=== PATIENT | female | born 1975 | race Caucasian/White ===

== ENCOUNTER 2018-05-22 18:12 | Inpatient (IN) | payer MEDICAID, SELFPAY ==
[2018-05-22 18:39] VITALS: BP 183/99; PULSE 144; RESP 20; TEMP 37.3; O2SAT 100
[2018-05-22] MEDS: LORazepam 2 MG/ML SYRINGE IV ×2 (18:50→23:45)
[2018-05-22] MEDS: SODIUM CHLORIDE 0.9% 1,000 ML 1000 ML IV (18:53)
[2018-05-22] MEDS: THIAMINE 100 MG in DEXTROSE 5 % IN WATER 50 ML 204 ML IV (18:59)
[2018-05-22 19:35] LABS: Urine Amphetamines Negative (Negative); Urine Cocaine Negative (Negative); Urine Methamphetamines Negative (Negative); Urine Morphine/Opi cutoff 2000 Negative (Negative); Urine Phencyclidine Negative (Negative); Urine Tetrahydrocannabinol Positive (Negative)
[2018-05-22 19:36] LABS: Urine Barbiturates Negative (Negative); Urine Benzodiazepines Positive (Negative); Urine MDMA Negative (Negative); Urine Methadone Negative (Negative); Urine Oxycodone Negative (Negative); Urine Tricyclic Antidepressant Negative (Negative)
[2018-05-22] MEDS: LORazepam 2 MG/ML SYRINGE 4 MG IV (19:54)
--- NOTE | 2018-05-22 20:52 | ED_ITS ---
HPI - Alcohol General Chief Complaint: Toxicology Problem Stated Complaint: ETOH withdraw Time Seen by Provider: 05/22/18 18:15 Source: patient, family and EMS Mode of arrival: EMS Limitations: no limitations History of Present Illness HPI narrative: 42-year-old female with history of smoking and alcohol use presents by air medical transport for evaluation of possible alcohol withdrawal. She drinks multiple alcoholic beverages daily and had her last drink he yesterday. She started developing headache with nausea and vomiting, resting tremor, tactile disturbance as well as visual hallucinations. She has had alcohol withdrawal before but never the [facility]. She has never had seizures and has never required hospitalization. She was evaluated by medics and given Ativan and magnesium prior to her arrival. This seemed to help her symptoms on the short term but she eventually became agitated again. MD complaint: alcohol withdrawal and alcohol dependence Last drink: days (ago) Chronic alcohol use: Yes Previous visits for alcohol intoxication: No Recent trauma: No Associated symptoms: nausea, vomiting, tremors and abdominal pain Treatments prior to arrival: benzodiazepines Related Data Home Medications Medication Instructions Recorded Confirmed Benadryl Allergy 05/22/18 buspirone 30 mg PO BID 05/22/18 05/22/18 gabapentin 05/22/18 venlafaxine 225 mg PO DAILY 05/22/18 05/22/18 Allergies Allergy/AdvReac Type Severity Reaction Status Date / Time Penicillins Allergy Verified 05/22/18 17:54 Review of Systems Review of Systems All systems reviewed & are unremarkable except as noted in HPI and below Constitutional Denies chills, Denies fever(s), Denies lethargy and Denies weakness Eyes Denies change in vision, Denies eye discharge, Denies irritation and Denies loss of vision ENT Ears, Nose, Mouth, and Throat: Denies change in voice, Denies neck pain and Denies sore throat Cardiovascular Denies chest pain, Denies irregular heart rhythm, Denies lightheadedness, Reports palpitations, Denies dyspnea, Denies dyspnea on exertion and Denies orthopnea Respiratory Denies cough, Denies dyspnea, Denies dyspnea on exertion and Denies wheezing Gastrointestinal Gastrointestinal: Reports abdominal pain, Denies change in bowel habits, Denies diarrhea, Reports nausea and Reports vomiting Genitourinary Denies hematuria, Denies flank pain, Denies urinary incontinence and Denies urinary urgency Musculoskeletal Reports abnormal gait and Denies neck pain Comments: Resting tremor Integumentary/Breasts Denies pruritus, Denies erythema, Denies rash and Denies wounds Comments: Diaphoresis Neurologic Reports abnormal movements, Reports abnormal gait, Reports behavioral changes, Reports confusion, Denies loss of vision and Denies weakness Psychiatric Reports anxiety, Reports behavioral changes, Reports confusion, Denies depression, Denies homicidal ideation and Denies suicidal ideation Endocrine Reports palpitations Hematologic/Lymphatic Denies easy bruising Allergic/Immunologic Denies wheezing [facility] Medical History Ankle fracture, left (Acute) Hip fracture requiring operative repair (Acute) Seasonal allergies (Acute) Social History household members: significant other Smoking Status: Current every day smoker Exam Narrative Exam Narrative: GENERAL: 42-year-old female in obvious significant distress, HEAD: Atraumatic. Normocephalic. No temporal or scalp tenderness. EYES: Pupils equal round and reactive. Extraocular motions intact. No scleral icterus. No injection or drainage. ENT: Nose without bleeding, purulent drainage or septal hematoma. Throat without erythema, tonsillar hypertrophy or exudate. Uvula midline. Airway patent. NECK: Trachea midline. No JVD or lymphadenopathy. Supple, nontender, no meningeal signs. CARDIOVASCULAR: Tachycardic with regular rhythm without murmurs, gallops, or rubs. RESPIRATORY: Clear to auscultation. Breath sounds equal bilaterally. No wheezes , rales, or rhonchi. GASTROINTESTINAL: Abdomen soft, non-tender, nondistended. No hepato-splenomegaly , or palpable masses. No guarding. EXTREMITIES: No clubbing, cyanosis, or edema. No joint tenderness, effusion, or edema noted. BACK: Nontender without deformity or crepitance. No flank tenderness. NEURO: AOx3. SKIN: Diaphoretic No rash or erythema. PSYCH: Agitated Initial Vital Signs Initial Vital Signs: Vital Signs Temperature 99.2 F 05/22/18 18:39 Pulse Rate 144 H 05/22/18 18:39 Respiratory Rate 20 05/22/18 18:39 Blood Pressure 183/99 H 05/22/18 18:39 Pulse Oximetry 100 05/22/18 18:39 Course Course Narrative: initial [facility] for Alcohol Withdrawal from [employer] on 05/22/2018 All calculations should be rechecked by clinician prior to use RESULT SUMMARY: 25 points Patients with scores ?20 frequently require medication for withdrawal, and may also require admission to the ICU for observation for seizures or development of delirium tremens, and more frequent medication dosing. INPUTS: Nausea/vomiting ?> 6 = (More severe symptoms) Tremor ?> 5 = (More severe symptoms) Paroxysmal sweats ?> 2 = (More severe symptoms) Anxiety ?> 2 = (More severe symptoms) Agitation ?> 3 = (More severe symptoms) Tactile disturbances ?> 2 = Mild itching, pin and needles, burning, or numbness Auditory disturbances ?> 2 = Mild harshness or ability or frighten Visual disturbances ?> 0 = Not present Headache/fullness in head ?> 3 = Moderate Orientation/clouding of sensorium ?> 0 = Oriented, can do serial additions Orders Ordered: ED Orders 05/22/18 18:28 EKG-12 Lead Stat 05/22/18 19:28 Urine Drug Screen, Rapid Stat 05/22/18 21:00 Complete Blood Count AUTO DIFF Stat Comprehensive Metabolic Panel Stat Ethanol (ETOH) Stat Hepatic (Liver) Panel Stat Lipase Stat Magnesium Stat 05/22/18 22:19 Urine Culture Stat Urine Microscopic Stat 05/22/18 22:20 Test Urine Stat 05/23/18 EKG-12 Lead Routine 05/23/18 01:34 MRSA PCR Routine 05/23/18 06:00 BMP [Basic Metabolic Panel] DAILY MAG [Magnesium] DAILY 05/24/18 06:00 BMP [Basic Metabolic Panel] DAILY MAG [Magnesium] DAILY 05/25/18 06:00 BMP [Basic Metabolic Panel] DAILY MAG [Magnesium] DAILY Clonidine HCl (Catapres) 0.1 mg PO Q8H PRN PRN Reason: for SBP > 160 mmHg and/or DBP > 100 mmHg Last Admin: 05/23/18 01:29 Dose: 0.1 mg Sodium Chloride (Normal Saline 0.9%) 1,000 mls @ 100 mls/hr IV CONT JOVANNI Last Admin: 05/23/18 00:08 Dose: 100 mls/hr Lorazepam (Ativan) 2 mg IV CIWAPRN PRN PRN Reason: Alcohol Withdrawal Last Admin: 05/23/18 01:34 Dose: 2 mg Nicotine (Nicoderm) 14 mg TOP DAILY JOVANNI Olanzapine (Zyprexa Zydis) 5 mg PO Q4H PRN PRN Reason: agitation and hallucinations Ondansetron HCl (Zofran Odt) 4 mg PO Q6H PRN PRN Reason: Nausea Last Admin: 05/23/18 01:27 Dose: 4 mg Discontinued Medications Sodium Chloride (Normal Saline 0.9%) 1,000 mls @ 1,000 mls/hr IV BOLUS ONE Stop: 05/22/18 19:37 Last Infusion: 05/22/18 22:03 Dose: 0 mls/hr Admin: 05/22/18 18:53 Dose: 1,000 mls/hr Thiamine HCl 100 mg/ Dextrose 51 mls @ 204 mls/hr IV NOW ONE Stop: 05/22/18 18:39 Last Infusion: 05/22/18 19:50 Dose: 0 mls/hr Admin: 05/22/18 18:59 Dose: 204 mls/hr Lorazepam (Ativan) 2 mg IV NOW ONE Stop: 05/22/18 18:39 Last Admin: 05/22/18 18:50 Dose: 2 mg Lorazepam (Ativan) 4 mg IV NOW ONE Stop: 05/22/18 19:45 Last Admin: 05/22/18 19:54 Dose: 4 mg Lorazepam (Ativan) 2 mg IV NOW ONE Stop: 05/22/18 23:43 Last Admin: 05/22/18 23:45 Dose: 2 mg Olanzapine (Zyprexa Zydis) 5 mg PO NOW ONE Stop: 05/22/18 23:27 Last Admin: 05/23/18 00:15 Dose: 5 mg Vital Signs - 8 hr 05/22/18 18:39 05/22/18 22:00 05/22/18 22:03 Temperature 99.2 F 98.7 F Pulse Rate 144 H 159 H 140 H Respiratory Rate 20 20 Blood Pressure 183/99 H 159/134 H 148/102 H Pulse Oximetry 100 98 05/22/18 22:30 05/22/18 23:43 05/23/18 01:29 Temperature 97.4 F L Pulse Rate 144 H 135 H 137 H Respiratory Rate 22 Blood Pressure 164/133 H 164/115 H 171/128 H Pulse Oximetry 98 MDM - Alcohol Lab Data Result diagrams: 05/22/18 21:00 05/22/18 21:00 Labs: Lab Results 05/22/18 05/22/18 05/22/18 Range/Units 19:28 21:00 21:00 WBC 6.9 (4.5-11.0) X10^3/uL RBC 3.56 L (4.0-5.2) X10^6/uL Hgb 12.1 (12.0-16.0) g/dL Hct 35.3 L (36-46) % MCV 99.2 (80-100) fL MCH 33.9 (26-34) PG MCHC 34.2 (30-36) % RDW 15.5 H (11.6-14.8) % Plt Count 197 (150-400) X10^3/uL Neut % (Auto) 76.4 H (50-75) % Lymph % (Auto) 18.4 L (25-40) % Hickman % (Auto) 4.8 (3-14) % Eos % (Auto) 0.0 L (2-4) % Baso % (Auto) 0.4 (0-2) % Neut # (Auto) 5300 (8658-2248) /uL Sodium 138 (137-145) mmol/L Potassium 3.5 (3.4-5.1) mmol/L Chloride 102 (98-107) mmol/L Carbon Dioxide 25 (22-32) mmol/L BUN 5 L (7-17) mg/dL Creatinine 0.50 L (0.52-1.04) mg/dL Estimated GFR > 60.0 (>60) mL/min BUN/Creatinine Ratio 10.0 (6-22) Glucose 110 H (70-100) mg/dL Calcium 8.2 L (8.4-10.2) mg/dL Magnesium 1.7 (1.6-2.3) mg/dL Total Bilirubin 0.6 (0.2-1.3) mg/dL Conjugated Bilirubin 0.0 (0.0-0.3) md/dL Unconjugated Bilirubin 0.2 (0.0-1.1) mg/dL AST 42 H (14-36) IU/L ALT 22 (9-52) IU/L Alkaline Phosphatase 64 (38-126) U/L Total Protein 6.9 (6.3-8.2) g/dL Albumin 4.2 (3.5-5.0) g/dL Globulin 2.7 (1.7-4.1) g/dL Albumin/Globulin Ratio 1.6 (1.0-2.8) Lipase 109 (23-300) U/L Urine RBC (0-5/HPF) Urine WBC (0-5/HPF) Ur Squamous Epith Cells Urine Bacteria (None) Ur Culture Indicated? Micro UA Comment Urine Test (Negative) Urine Opiates Screen Negative (Negative) Ur Oxycodone Screen Negative (Negative) Urine Methadone Screen Negative (Negative) Ur Barbiturates Screen Negative (Negative) U Tricyclic Antidepress Negative (Negative) Ur Phencyclidine Scrn Negative (Negative) Ur Amphetamines Screen Negative (Negative) U Methamphetamines Scrn Negative (Negative) Ur MDMA Scrn (Ecstasy) Negative (Negative) U Benzodiazepines Scrn Positive H (Negative) Urine Cocaine Screen Negative (Negative) U Marijuana (THC) Screen Positive H (Negative) Ethyl Alcohol < 10 mg/dL 05/22/18 05/22/18 Range/Units 22:19 22:20 WBC (4.5-11.0) X10^3/uL RBC (4.0-5.2) X10^6/uL Hgb (12.0-16.0) g/dL Hct (36-46) % MCV (80-100) fL MCH (26-34) PG MCHC (30-36) % RDW (11.6-14.8) % Plt Count (150-400) X10^3/uL Neut % (Auto) (50-75) % Lymph % (Auto) (25-40) % Hickman % (Auto) (3-14) % Eos % (Auto) (2-4) % Baso % (Auto) (0-2) % Neut # (Auto) (2811-9121) /uL Sodium (137-145) mmol/L Potassium (3.4-5.1) mmol/L Chloride (98-107) mmol/L Carbon Dioxide (22-32) mmol/L BUN (7-17) mg/dL Creatinine (0.52-1.04) mg/dL Estimated GFR (>60) mL/min BUN/Creatinine Ratio (6-22) Glucose (70-100) mg/dL Calcium (8.4-10.2) mg/dL Magnesium (1.6-2.3) mg/dL Total Bilirubin (0.2-1.3) mg/dL Conjugated Bilirubin (0.0-0.3) md/dL Unconjugated Bilirubin (0.0-1.1) mg/dL AST (14-36) IU/L ALT (9-52) IU/L Alkaline Phosphatase (38-126) U/L Total Protein (6.3-8.2) g/dL Albumin (3.5-5.0) g/dL Globulin (1.7-4.1) g/dL Albumin/Globulin Ratio (1.0-2.8) Lipase (23-300) U/L Urine RBC 0-1/hpf (0-5/HPF) Urine WBC 5-10/hpf H (0-5/HPF) Ur Squamous Epith Cells 0-1 /hpf Urine Bacteria Many (>30) H (None) Ur Culture Indicated? Specimen cultured Micro UA Comment Not Reportable Urine Test Negative (Negative) Urine Opiates Screen (Negative) Ur Oxycodone Screen (Negative) Urine Methadone Screen (Negative) Ur Barbiturates Screen (Negative) U Tricyclic Antidepress (Negative) Ur Phencyclidine Scrn (Negative) Ur Amphetamines Screen (Negative) U Methamphetamines Scrn (Negative) Ur MDMA Scrn (Ecstasy) (Negative) U Benzodiazepines Scrn (Negative) Urine Cocaine Screen (Negative) U Marijuana (THC) Screen (Negative) Ethyl Alcohol mg/dL Point of Care Testing Breathalizer 0 Glucose POC 112 Urine Dip Bedside Urine Glucose Negative Bedside Urine Bilirubin - Negative Bedside Urine Ketone ++ 40 Urine Specific [place] 1.030 Bedside Urine Occult Blood +++ Bedside Urine pH 6.0 Bedside Urine Protein ++ 100 Bedside Urine Urobilinogen 0.2 Bedside Urine Nitrite + Positive Bedside Urine Leukocytes - Negative Esterase Discharge Plan Departure Patient Disposition: Admitted As Inpatient Clinical Impression: Alcohol withdrawal syndrome Discharge Date/Time: 05/22/18 22:04 Interventions: ED Discharge Assessment Last Done: 05/22/18 22:03 Admit Date/Time: 05/22/18 21:34 Admit Provider: Alissa Toure
[2018-05-22 21:20] LABS: Add Manual Diff / Slide Review NO; Basophils Percent Auto 0.4 % (0-2); Hematocrit 35.3 % (36-46); Hemoglobin 12.1 g/dL (12.0-16.0); Lymphocytes Percent Auto 18.4 % (25-40); Mean Corpuscular HGB Conc 34.2 % (30-36); Mean Corpuscular Hemoglobin 33.9 PG (26-34); Mean Corpuscular Volume 99.2 fL (80-100); Monocytes Percent Auto 4.8 % (3-14); Neutrophils Absolute Auto 5300 /uL (3000-5900); Neutrophils Percent Auto 76.4 % (50-75); Platelet Count 197 X10^3/uL (150-400); Red Blood Cell Count 3.56 X10^6/uL (4.0-5.2); Red Cell Distribution Width 15.5 % (11.6-14.8); White Blood Cell Count 6.9 X10^3/uL (4.5-11.0)
[2018-05-22 21:24] LABS: Alanine Aminotransferase 22 IU/L (9-52); Albumin 4.2 g/dL (3.5-5.0); Albumin Globulin Ratio 1.6 (1.0-2.8); Alkaline Phosphatase 64 U/L (38-126); Aspartate Aminotransferase 42 IU/L (14-36); Bilirubin Total 0.6 mg/dL (0.2-1.3); Bilirubin Unconjugated 0.2 mg/dL (0.0-1.1); Blood Urea Nitrogen 5 mg/dL (7-17); Calcium 8.2 mg/dL (8.4-10.2); Carbon Dioxide 25 mmol/L (22-32); Chloride 102 mmol/L (98-107); Estimated Glomerular Filt Rate > 60.0 mL/min (>60); Ethanol (ETOH) < 10 mg/dL; Globulin 2.7 g/dL (1.7-4.1); Glucose 110 mg/dL (70-100); HEMOLYSIS < 15 (0-50); Lipase 109 U/L (23-300); Magnesium 1.7 mg/dL (1.6-2.3); Potassium 3.5 mmol/L (3.4-5.1); Sodium 138 mmol/L (137-145); Total Protein 6.9 g/dL (6.3-8.2)
[2018-05-22 22:00] VITALS: BP 159/134; PULSE 159; RESP 20; TEMP 37.1
[2018-05-22 22:03] VITALS: BP 148/102; PULSE 140; O2SAT 98
[2018-05-22 22:11] VITALS: BMI 29.5
[2018-05-22 22:30] VITALS: BP 164/133; PULSE 144
[2018-05-22 22:34] LABS: Bacteria Urine Many (>30); RBC Urine 0-1/HPF (0-5/HPF); Squamous Epithelial Cell Urine 0-1 /HPF; WBC Urine 5-10/HPF (0-5/HPF)
[2018-05-22 22:35] LABS: Culture Indicated Urine Specimen Cultured
--- NOTE | 2018-05-22 23:02 | PC.NURSE ---
2200- Pt to the room from ER. Able to stand pivot transfer to bed. Tremulous, impulsive. Oriented to room and routine. Reinforced safety, bed alarm on. S.O. at bedside.
[2018-05-22 23:43] VITALS: BP 164/115; PULSE 135; RESP 22; TEMP 36.3; O2SAT 98
[2018-05-22 23:48] LABS: Pregnancy Test Urine Negative (Negative)
[2018-05-23] VITALS (12 sets, daily range): BP systolic 143–176; BP diastolic 88–128; PULSE 112–137; RESP 10–19; TEMP 36.3–36.7; O2SAT 97–98
[2018-05-23] MEDS: SODIUM CHLORIDE 0.9% 1,000 ML 100 ML IV (00:08)
[2018-05-23] MEDS: OLANZapine ODT 10 MG TAB 5 MG PO (00:15)
[2018-05-23] MEDS: ONDANSETRON 4 MG ODT PO ×2 (01:27→09:22)
[2018-05-23] MEDS: cloNIDine 0.1 MG TABLET PO ×3 (01:29→20:53)
[2018-05-23] MEDS: LORazepam 2 MG/ML SYRINGE IV ×7 (01:34→20:53)
--- NOTE | 2018-05-23 02:54 | P.HP_ITS ---
History of Present Illness Date Patient Seen: 05/22/18 Time Patient Seen: 23:47 Chief complaint: ETOH withdraw Narrative: The patient is a 42-year-old female with PMH significant for anxiety , depression, ETOH abuse, tobacco dependence, and marijuana use. Transported via [facility] from [place] for ETOH withdrawal symptoms. Patient woke in a.m. of 05/22/2018 with nausea, vomiting/dry heaves (reports 10+ episodes, bilious, non-bloody), and diarrhea. Associated symptoms include tremulousness, diaphoresis, insomnia, headache, dizziness, and tactile disturbances. Denies chest pain, palpitations, dyspnea, or abdominal pain. Patient has an underlying history of heavy alcohol dependence / abuse. Patient reports her alcohol use as on and off for a number of years, she is reluctant to provide definitive time frame. Drinks 1 pint of hard liquor daily. Last drink 24-48 hours prior to hospital presentation. On presentation to the ED was noted to have a score of 25. ETOH level less than 10. Patient admits to prior history of ETOH withdrawal with similar symptoms. She does admit to history of aggression during ETOH withdrawal. However, denies withdrawal associated delirium and seizures. Patient denies recreational drug use, however her urine drug screen was positive for marijuana and benzodiazepines. Patient History Medical History Alcohol abuse (Chronic) Ankle fracture, left (Chronic) Anxiety and depression (Chronic) Hip fracture requiring operative repair (Chronic) Marijuana use (Chronic) Seasonal allergies (Chronic) Tobacco dependence (Chronic) Surgical History History of section (Acute) Family & Social History Social History: household members Significant other Prior Living Arrangements House Patient has 1 daughter. Safety & Behavioral: Feels Safe in Current Yes Environment Been Physically Hurt or No Threatened By a Person Suicidal Ideation Description None Suicide Plan Description No Plan Tobacco & Substance use: Tobacco type cigarettes,cannabis/marijuana Smoking Status Current every day smoker alcohol intake frequency 3 or more drinks per day Substance Use Type marijuana Meds Home Medications Medication Instructions Recorded Confirmed Type buspirone 30 mg PO BID 05/22/18 05/22/18 History gabapentin 05/22/18 History venlafaxine 225 mg PO DAILY 05/22/18 05/22/18 History Allergies Allergy/AdvReac Type Severity Reaction Status Date / Time diphenhydramine Allergy Unverified 05/23/18 03:14 [From Benadryl Allergy] Penicillins Allergy Verified 05/22/18 17:54 Review of Systems Review of Systems All systems reviewed & are unremarkable except as noted in HPI and below and other (History of anxiety and depression. Denies harmful ideation or self and others.) Exam Vital Signs (past 8 hours): - 05/22/18 22:00 05/22/18 22:03 05/22/18 22:30 Temperature 98.7 F Pulse Rate 159 H 140 H 144 H Respiratory Rate 20 Blood Pressure 159/134 H 148/102 H 164/133 H Pulse Oximetry 98 05/22/18 23:43 05/23/18 01:29 Temperature 97.4 F L Pulse Rate 135 H 137 H Respiratory Rate 22 Blood Pressure 164/115 H 171/128 H Pulse Oximetry 98 Oxygen Delivery Method Room Air Narrative Exam Narrative: Gen. appearance: Mild distress. Patient seen in the ICU. HEENT: NC/AT, gaze conjugate, sclera anicteric, external nose intact bilaterally w/ drainage or epistaxis External ears intact bilaterally, oropharynx without lesions or exudates Neck: No lymphadenopathy, no JVD Chest: Symmetrical chest rise Respiratory: Unlabored respiratory effort, on room air, breath sounds diminished Cardiac: S1-S2, tachycardia on bus driver/monitor, no murmur GI: Marked central obesity, nontender, nondistended, normoactive bowel sounds : No CVA tenderness Skin: Mildly diaphoretic, no overt lesions or bruising Neuro: Alert and oriented x3, bilateral hand in for tremor present, no focal deficits Extremities: Peripheral extremity pulses palpable, sensation intact bilaterally , no edema Psych: Fair account of history and symptoms, flat affect Objective Labs Result Diagrams: 05/22/18 21:00 05/23/18 06:43 Labs: Laboratory Results - last 24 hr 05/22/18 05/22/18 05/22/18 19:28 21:00 21:00 WBC 6.9 RBC 3.56 L Hgb 12.1 Hct 35.3 L MCV 99.2 MCH 33.9 MCHC 34.2 RDW 15.5 H Plt Count 197 Neut % (Auto) 76.4 H Lymph % (Auto) 18.4 L Hernando % (Auto) 4.8 Eos % (Auto) 0.0 L Baso % (Auto) 0.4 Neut # (Auto) 5300 Sodium 138 Potassium 3.5 Chloride 102 Carbon Dioxide 25 BUN 5 L Creatinine 0.50 L Estimated GFR > 60.0 BUN/Creatinine Ratio 10.0 Glucose 110 H Calcium 8.2 L Magnesium 1.7 Total Bilirubin 0.6 Conjugated Bilirubin 0.0 Unconjugated Bilirubin 0.2 AST 42 H ALT 22 Alkaline Phosphatase 64 Total Protein 6.9 Albumin 4.2 Globulin 2.7 Albumin/Globulin Ratio 1.6 Lipase 109 Urine RBC Urine WBC Ur Squamous Epith Cells Urine Bacteria Ur Culture Indicated? Micro UA Comment Urine Test Urine Opiates Screen Negative Ur Oxycodone Screen Negative Urine Methadone Screen Negative Ur Barbiturates Screen Negative U Tricyclic Antidepress Negative Ur Phencyclidine Scrn Negative Ur Amphetamines Screen Negative U Methamphetamines Scrn Negative Ur MDMA Scrn (Ecstasy) Negative U Benzodiazepines Scrn Positive H Urine Cocaine Screen Negative U Marijuana (THC) Screen Positive H Ethyl Alcohol < 10 05/22/18 05/22/18 22:19 22:20 WBC RBC Hgb Hct MCV MCH MCHC RDW Plt Count Neut % (Auto) Lymph % (Auto) Hernando % (Auto) Eos % (Auto) Baso % (Auto) Neut # (Auto) Sodium Potassium Chloride Carbon Dioxide BUN Creatinine Estimated GFR BUN/Creatinine Ratio Glucose Calcium Magnesium Total Bilirubin Conjugated Bilirubin Unconjugated Bilirubin AST ALT Alkaline Phosphatase Total Protein Albumin Globulin Albumin/Globulin Ratio Lipase Urine RBC 0-1/hpf Urine WBC 5-10/hpf H Ur Squamous Epith Cells 0-1 /hpf Urine Bacteria Many (>30) H Ur Culture Indicated? Specimen cultured Micro UA Comment Not Reportable Urine Test Negative Urine Opiates Screen Ur Oxycodone Screen Urine Methadone Screen Ur Barbiturates Screen U Tricyclic Antidepress Ur Phencyclidine Scrn Ur Amphetamines Screen U Methamphetamines Scrn Ur MDMA Scrn (Ecstasy) U Benzodiazepines Scrn Urine Cocaine Screen U Marijuana (THC) Screen Ethyl Alcohol Assessment & Plan Plan: Assessment/Plan Narrative: Alcohol dependence with withdrawal - seizure precautions - CIWA scale for alcohol withdrawal - ativan 2-4 mg IV prn depending on CIWA score - clonidine 0.1 mg p.o. Q8H prn for SBP > 160 and/or DBP > 100 - Cipro XR 5 mg p.o. Q4H for agitation and hallucinations - MTW / Thiamine / Folic Acid (banana bag) IV x3 days - SCDs - ETOH cessation education - IVF at 100 ml/hr - BMP, Mag in am - replete electrolyte deficiencies Nausea, vomiting, and diarrhea No vomiting or diarrhea episodes since admission - antiemetics as needed - supportive care Tobacco dependence, current everyday smoker - nicotine patch - smoking have encouraged Abnormal urinalysis Abnormal UA with reported dysuria and frequency. UA is remarkable for urine bacteria > 30 and urine WBC 5-10. No leukocyte esterase or nitrites noted - urine culture - will hold off on empiric therapy at this time Anxiety and depression Stable, denies harmful ideation or self and others - resume home [employer] antidepressants, buspirone and venlafaxine Abnormal urine drug screen Remarkable for benzodiazepines and marijuana Quality VTE Deep Vein Thrombosis/Pulmonary Embolism Present on Admission: No
[2018-05-23 07:05] LABS: BUN Creatinine Ratio 6.7 (6-22); Blood Urea Nitrogen 4 mg/dL (7-17); Calcium 7.2 mg/dL (8.4-10.2); Carbon Dioxide 26 mmol/L (22-32); Chloride 103 mmol/L (98-107); Estimated Glomerular Filt Rate > 60.0 mL/min (>60); Glucose 105 mg/dL (70-100); HEMOLYSIS < 15 (0-50); Magnesium 1.4 mg/dL (1.6-2.3); Potassium 2.9 mmol/L (3.4-5.1); Sodium 137 mmol/L (137-145)
--- NOTE | 2018-05-23 08:46 | PC.NURSE ---
pt sleeping. significant other, Arnaldo sitting at bedside. IVF infusing
[2018-05-23] MEDS: NICOTINE 14 PATCH 14 MG TOP (09:13)
[2018-05-23] MEDS: MAGNESIUM SULFATE 2 GM, FOLIC ACID 1 MG, THIAMINE 100 MG, MULTIVITAMIN 10 ML in SODIUM ... IV (09:59)
[2018-05-23] MEDS: OLANZapine 2.5 MG TABLET 5 MG PO ×2 (11:25→20:53)
--- NOTE | 2018-05-23 12:57 | PM.PN.1 ---
Subjective Date Patient Seen: 05/23/18 Time Patient Seen: 12:57 Interval history: Patient seen at bedside. Sleepy but arousable. No overnight events. CIWA 5. Exam Vital Signs (past 8 hours): - 05/23/18 05:00 05/23/18 06:00 05/23/18 07:03 Temperature Pulse Rate 118 H 115 H 115 H Respiratory Rate 19 18 18 Blood Pressure 143/98 H 148/99 H 151/105 H Pulse Oximetry 05/23/18 07:31 05/23/18 09:21 05/23/18 11:44 Temperature 97.4 F L 97.8 F Pulse Rate 115 H 115 H Respiratory Rate 16 10 L Blood Pressure 151/105 H 176/114 H 160/91 H Pulse Oximetry 97 97 Oxygen Delivery Method Room Air Narrative Exam Narrative: Gen. appearance: No acute distress HEENT: PERRLA BL Neck: No lymphadenopathy, no JVD Chest: Symmetrical chest rise Respiratory: Good respiratory effort, on room air, breath sounds normal Cardiac: S1-S2, tachycardia on hospital monitor, no murmur GI: Marked central obesity, nontender, nondistended, normoactive bowel sounds : No CVA tenderness Skin: Mildly diaphoretic, no overt lesions or bruising Neuro: Alert and oriented x3, bilateral hand tremor present, no focal deficits. CIWA 5 Extremities: Peripheral extremity pulses palpable, sensation intact bilaterally, no edema Psych: Normal response, sleepy Objective Labs Result Diagrams: 05/22/18 21:00 05/23/18 06:43 Labs: Laboratory Results - last 24 hr 05/22/18 05/22/18 05/22/18 19:28 21:00 21:00 WBC 6.9 RBC 3.56 L Hgb 12.1 Hct 35.3 L MCV 99.2 MCH 33.9 MCHC 34.2 RDW 15.5 H Plt Count 197 Neut % (Auto) 76.4 H Lymph % (Auto) 18.4 L Rogers % (Auto) 4.8 Eos % (Auto) 0.0 L Baso % (Auto) 0.4 Neut # (Auto) 5300 Sodium 138 Potassium 3.5 Chloride 102 Carbon Dioxide 25 BUN 5 L Creatinine 0.50 L Estimated GFR > 60.0 BUN/Creatinine Ratio 10.0 Glucose 110 H Calcium 8.2 L Magnesium 1.7 Total Bilirubin 0.6 Conjugated Bilirubin 0.0 Unconjugated Bilirubin 0.2 AST 42 H ALT 22 Alkaline Phosphatase 64 Total Protein 6.9 Albumin 4.2 Globulin 2.7 Albumin/Globulin Ratio 1.6 Lipase 109 Urine RBC Urine WBC Ur Squamous Epith Cells Urine Bacteria Ur Culture Indicated? Micro UA Comment Urine Test Nasal Screen MRSA (PCR) Urine Opiates Screen Negative Ur Oxycodone Screen Negative Urine Methadone Screen Negative Ur Barbiturates Screen Negative U Tricyclic Antidepress Negative Ur Phencyclidine Scrn Negative Ur Amphetamines Screen Negative U Methamphetamines Scrn Negative Ur MDMA Scrn (Ecstasy) Negative U Benzodiazepines Scrn Positive H Urine Cocaine Screen Negative U Marijuana (THC) Screen Positive H Ethyl Alcohol < 10 05/22/18 05/22/18 05/22/18 22:00 22:19 22:20 WBC RBC Hgb Hct MCV MCH MCHC RDW Plt Count Neut % (Auto) Lymph % (Auto) Rogers % (Auto) Eos % (Auto) Baso % (Auto) Neut # (Auto) Sodium Potassium Chloride Carbon Dioxide BUN Creatinine Estimated GFR BUN/Creatinine Ratio Glucose Calcium Magnesium Total Bilirubin Conjugated Bilirubin Unconjugated Bilirubin AST ALT Alkaline Phosphatase Total Protein Albumin Globulin Albumin/Globulin Ratio Lipase Urine RBC 0-1/hpf Urine WBC 5-10/hpf H Ur Squamous Epith Cells 0-1 /hpf Urine Bacteria Many (>30) H Ur Culture Indicated? Specimen cultured Micro UA Comment Not Reportable Urine Test Negative Nasal Screen MRSA (PCR) Negative for mrsa Urine Opiates Screen Ur Oxycodone Screen Urine Methadone Screen Ur Barbiturates Screen U Tricyclic Antidepress Ur Phencyclidine Scrn Ur Amphetamines Screen U Methamphetamines Scrn Ur MDMA Scrn (Ecstasy) U Benzodiazepines Scrn Urine Cocaine Screen U Marijuana (THC) Screen Ethyl Alcohol 05/23/18 06:43 WBC RBC Hgb Hct MCV MCH MCHC RDW Plt Count Neut % (Auto) Lymph % (Auto) Rogers % (Auto) Eos % (Auto) Baso % (Auto) Neut # (Auto) Sodium 137 Potassium 2.9 L Chloride 103 Carbon Dioxide 26 BUN 4 L Creatinine 0.60 Estimated GFR > 60.0 BUN/Creatinine Ratio 6.7 Glucose 105 H Calcium 7.2 L Magnesium 1.4 L Total Bilirubin Conjugated Bilirubin Unconjugated Bilirubin AST ALT Alkaline Phosphatase Total Protein Albumin Globulin Albumin/Globulin Ratio Lipase Urine RBC Urine WBC Ur Squamous Epith Cells Urine Bacteria Ur Culture Indicated? Micro UA Comment Urine Test Nasal Screen MRSA (PCR) Urine Opiates Screen Ur Oxycodone Screen Urine Methadone Screen Ur Barbiturates Screen U Tricyclic Antidepress Ur Phencyclidine Scrn Ur Amphetamines Screen U Methamphetamines Scrn Ur MDMA Scrn (Ecstasy) U Benzodiazepines Scrn Urine Cocaine Screen U Marijuana (THC) Screen Ethyl Alcohol Assessment & Plan Plan: Assessment/Plan Narrative: 42-year-old female with past medical history of anxiety, depression, alcohol abuse, tobacco dependence, and marijuana use presented to emergency department with alcohol withdrawal symptoms. She was transferred to ICU unit for further management. 1. Alcohol Withdrawal - With nausea/vomiting/diarrhea/tremmors - Continue CIWA protocol with Ativan PRN - Multivitamin/Thiamine/Folic Acid - ETOH cessation counseling - Continue to replete electrolytes 2. Tobacco abuse - continue nicotine patch 3. Anxiety and Depression - Stable - Continue buspirone and venlafaxine 4. UTI - UA positive for WBC, Urine cx grew >100k Ecoli - Will start patient Bactrim x 3 days Quality VTE Deep Vein Thrombosis/Pulmonary Embolism Present on Admission: No
[2018-05-23] MEDS: SULFA/TRIMETH 800/160 (DS) TABLET 1 TAB PO (14:46)
--- NOTE | 2018-05-23 15:01 | PC.NURSE ---
pt states she wants to leave. her significant other, Arnaldo went home to [place] but will be back. Dr. Toure notified of possible AMA
[2018-05-23] MEDS: MAGNESIUM SULFATE 2 GM/50 ML PIGGYBACK IV (15:37)
--- NOTE | 2018-05-23 18:08 | PC.NURSE ---
Addendum entered by Mariam Finnegan R.N. 05/23/18 21:58: 2145 -Pt inc of small amount of gelatinous stool. Linen and gown changed. Pt declined to have staff assist with asia-care. Yellow gown on. Bed alarm on. Original Note: Addendum entered by Mariam Finnegan R.N. 05/23/18 20:00: Pt reports feeling less shaky continues to be impulsive with movements. Supportive S.O. at bedside. Original Note: 1720 - Pt out of bed. Bed alarm sounding. Pt states that she is looking for her dog. Its a little dog, and she didn't come back. Pt able to reorient self after a few moments. Pt had previously been sitting up eating dinner, not asleep. SBA while pt returned to bed. Reinforced treatment plan. Call light in reach. Bed alarm on. CIWA 13, ativan 2mg given.
[2018-05-23] MEDS: POTASSIUM CHLORIDE 80 MEQ in SODIUM CHLORIDE 0.9% 1,000 ML 130 ML IV (18:26)
[2018-05-24] VITALS (17 sets, daily range): BP systolic 109–185; BP diastolic 61–114; PULSE 90–148; RESP 16–22; TEMP 35.8–36.6; O2SAT 94–100
[2018-05-24] MEDS: LORazepam 2 MG/ML SYRINGE IV ×7 (02:04→08:56)
[2018-05-24] MEDS: SODIUM CHLORIDE 0.9% 1,000 ML 100 ML IV ×2 (02:37→20:29)
[2018-05-24] MEDS: OLANZapine 2.5 MG TABLET 5 MG PO ×4 (03:00→23:43)
[2018-05-24 05:06] LABS: Add Manual Diff / Slide Review NO; Basophils Percent Auto 0.2 % (0-2); Eosinophils Percent Auto 0.7 % (2-4); Hematocrit 30.7 % (36-46); Hemoglobin 10.6 g/dL (12.0-16.0); Lymphocytes Percent Auto 26.7 % (25-40); Mean Corpuscular HGB Conc 34.5 % (30-36); Mean Corpuscular Hemoglobin 34.4 PG (26-34); Mean Corpuscular Volume 99.7 fL (80-100); Monocytes Percent Auto 3.6 % (3-14); Neutrophils Absolute Auto 3800 /uL (3000-5900); Neutrophils Percent Auto 68.8 % (50-75); Platelet Count 150 X10^3/uL (150-400); Red Blood Cell Count 3.08 X10^6/uL (4.0-5.2); Red Cell Distribution Width 15.4 % (11.6-14.8); White Blood Cell Count 5.5 X10^3/uL (4.5-11.0)
[2018-05-24 05:10] LABS: Blood Urea Nitrogen 2 mg/dL (7-17); Calcium 6.8 mg/dL (8.4-10.2); Carbon Dioxide 19 mmol/L (22-32); Chloride 107 mmol/L (98-107); Estimated Glomerular Filt Rate > 60.0 mL/min (>60); Glucose 121 mg/dL (70-100); HEMOLYSIS < 15 (0-50); Magnesium 1.9 mg/dL (1.6-2.3); Potassium 3.7 mmol/L (3.4-5.1); Sodium 134 mmol/L (137-145)
[2018-05-24] MEDS: PHENobarbital sodium 130 MG/ML VIAL IV ×8 (06:19→18:16)
--- NOTE | 2018-05-24 06:29 | PC.NURSE ---
Disoriented to place, time and situation, having auditory, visual, tactile hallucinations, refusing to take PO, attempting to leave AMA, allowing friend Arnaldo to lay on bed to keep her calm while 130mg of IV Phenobarbital has an opportunity to work since Ativan so far ineffective, stong tremors continue, IV disconnected for present.
--- NOTE | 2018-05-24 06:53 | PC.NURSE ---
Mod[place]is bracelet with stones removed by pt and given to friend Arnaldo by nurse.
[2018-05-24] MEDS: SULFA/TRIMETH 800/160 (DS) TABLET 1 TAB PO (07:29)
[2018-05-24] MEDS: cloNIDine 0.1 MG TABLET PO ×2 (07:29→23:43)
--- NOTE | 2018-05-24 08:18 | CM.IDA ---
Discharge Planning/Care Management CM Discharge Assessment Start: 05/24/18 07:57 Freq: Status: Active Protocol: Document 05/24/18 07:58 KIRAN (Rec: 05/24/18 08:18 KIRAN [id number]) Discharge Planning Assessment Assigned Inspector [employer] HARVEY Phillips DPOA/Assigned Designee Name Arnaldo Johnson SO Contact Information [phone] Advance Directives? No History Provided By Patient Prior Living Arrangements House Household Members significant other Type of transporation used prior to Drives own vehicle admit Comment Uses Arnaldo's vehicle. Un- employed at this time Independent with ADL's Yes Is patient alert and oriented? Yes Comment Mostly independent unless drunk, h/o fall and hip fracture. Heavy alcohol use, pt will not report how much intake daily. Barriers to Discharge No Discharge Plan Home Transportation Arrangement Family Referrals Initiated Other Inpatient Status as of 05/22/18 Comment Met w/pt yesterday, explained SW role. Pt was groggy and did not report many details re: her alcohol use; current or past (pt states I've been drinking since highschool). Pt has lived on [address] for a year, couch surfing. Pt currently lives w/SO Arnaldo, she reports Arnaldo does not drink. Pt admits her drinking is a problem for her and she wants to stay sober. Pt states her greatest stressors are living on [place] and feeling isolated, having a broken down car, un-employed, and not seeing her 14 yo dtr that lives w/her Dad in [place]. Pt knows of AA mtgs on [address]. Discussed addiction counseling , pt agreeable to taking contact information for a counselor that takes Medicaid. This RESOURCE CONSERVATION SPECIALIST found that [facility] [address] was the primary substance abuse treatment program [facility] that accepts [facility]. Gave this contact info to pt. Pt attempting to leave yesterday after this RESOURCE CONSERVATION SPECIALIST left her room; pt remains here today and will likely return home w/SO today. Following in case other needs arise before pt's DC home. Please Provide Date Initial DC 05/23/18 Assessment Was Performed HARVEY Ibarra
[2018-05-24] MEDS: NICOTINE 14 PATCH 14 MG TOP (08:25)
--- NOTE | 2018-05-24 08:30 | PM.PN.1 ---
Subjective Date Patient Seen: 05/24/18 Time Patient Seen: 08:30 Interval history: Patient seen at bedside. She is in active DTs at the moment with CIWA 20. Very agitated and attempting to leave. Overnight has been increasingly agiated with CIWA at 17-20 consistently despite Ativan use Exam Vital Signs (past 8 hours): - 05/24/18 01:30 05/24/18 02:05 05/24/18 04:10 Pulse Rate 130 H Respiratory Rate 20 Blood Pressure 185/93 H 154/105 H 151/95 H Pulse Oximetry 98 05/24/18 07:14 Pulse Rate 148 H Respiratory Rate 20 Blood Pressure 179/99 H Pulse Oximetry 94 Oxygen Delivery Method Room Air Narrative Exam Narrative: Gen: Moderate distress, clear speech HEENT: PERRLA BL Neck: No lymphadenopathy, no JVD Chest: Symmetrical chest rise Respiratory: Good respiratory effort, on room air, breath sounds normal Cardiac: S1-S2, tachycardia, no murmur GI: Marked central obesity, nontender, nondistended, normoactive bowel sounds : No CVA tenderness Skin: Mildly diaphoretic, no overt lesions or bruising Neuro: Alert and oriented x3, bilateral hand tremor present, no focal deficits. CIWA 5 Extremities: Peripheral extremity pulses palpable, sensation intact bilaterally, no edema Psych: severely agitated and anxious. Restless Objective Labs Result Diagrams: 05/24/18 04:43 05/24/18 04:43 Labs: Laboratory Results - last 24 hr 05/24/18 05/24/18 04:43 04:43 WBC 5.5 RBC 3.08 L Hgb 10.6 L Hct 30.7 L MCV 99.7 MCH 34.4 H MCHC 34.5 RDW 15.4 H Plt Count 150 Neut % (Auto) 68.8 Lymph % (Auto) 26.7 [place] % (Auto) 3.6 Eos % (Auto) 0.7 L Baso % (Auto) 0.2 Neut # (Auto) 3800 Sodium 134 L Potassium 3.7 Chloride 107 Carbon Dioxide 19 L BUN 2 L Creatinine 0.50 L Estimated GFR > 60.0 BUN/Creatinine Ratio 4.0 L Glucose 121 H Calcium 6.8 L Magnesium 1.9 Assessment & Plan Plan: Assessment/Plan Narrative: 42-year-old female with past medical history of anxiety, depression, alcohol abuse, tobacco dependence, and marijuana use presented to emergency department with alcohol withdrawal symptoms. She was transferred to ICU unit for further management. 1. Alcohol Withdrawal - With nausea/vomiting/diarrhea/tremmors - Continue CIWA protocol with Ativan PRN. Started on Phenabarbital as well due to CIWA 20 and minimal response to Ativan pushes. May need to switch to Ativan drip - Multivitamin/Thiamine/Folic Acid - ETOH cessation counseling - Continue to replete electrolytes 2. Tobacco abuse - continue nicotine patch 3. Anxiety and Depression - Stable - Continue buspirone and venlafaxine 4. UTI - UA positive for WBC, Urine cx grew >100k Ecoli - continue Bactrim x 3 days Quality VTE Deep Vein Thrombosis/Pulmonary Embolism Present on Admission: No
[2018-05-24] MEDS: MAGNESIUM SULFATE 2 GM/50 ML PIGGYBACK IV (08:53)
[2018-05-24] MEDS: LORazepam 2 MG/ML SYRINGE 4 MG IV ×6 (10:25→23:03)
[2018-05-24] MEDS: CALCIUM GLUCONATE 4.65 MEQ in SODIUM CHLORIDE 0.9% 50 ML 120 ML IV (10:26)
[2018-05-24] MEDS: MAGNESIUM SULFATE 2 GM, FOLIC ACID 1 MG, THIAMINE 100 MG, MULTIVITAMIN 10 ML in SODIUM ... IV (10:26)
--- NOTE | 2018-05-24 13:41 | PC.NURSE ---
pt very difficult to assess and keep safe this date- frequent doses of phenobarbitol and lorazepam given as well po zyprexa- the iv doses may have been delayed to pt as iv x 2 infiltrated - new iv initiated and hardy placed due to urinary retention and freq attempts to get up from bed to use bathroom- pt unsafe with transfer as noted this am when it took 3 staff members to get her back to bed, room air spo2 96-100% and po clonidine given this am for elevated b/p- significant other at bedside intermittently- no seizure activity noted
--- NOTE | 2018-05-24 15:05 | CM.DPC ---
DCP Cont: According to Dr Toure; pt had a very difficult night, agitated, hallucinating, and unable to be redirected. CIWA score has jumped to 28 this afternoon. Pt may be a good candidate for inpt alcohol treatment once medically cleared, if pt agrees and Medicaid can be secured. Following closely. HARVEY Ibarra
[2018-05-25] VITALS (7 sets, daily range): BP systolic 110–152; BP diastolic 73–117; PULSE 98–123; RESP 16–21; TEMP 35.8–36.7; O2SAT 94–100
[2018-05-25] MEDS: PHENobarbital sodium 130 MG/ML VIAL IV ×5 (00:35→08:00)
--- NOTE | 2018-05-25 00:49 | PC.NURSE ---
Addendum entered by Mariya Pina R.N. 05/25/18 05:04: Patient slept until 0415, then woke agitated with CIWA of 21, 4mg IV Ativan given with no effect, another 130mg IV Phenobarbitol given. HR down to 80s when asleep, tachy to 120s while awake, BP now 146/73. Am labs drawn. Original Note: At midnight patient is awake and restless with CIWA score of 26, confused, hallucinating, reaching for candles on the floor says her name is Tete but will respond to Tiska, moderate tremors, moist skin, sinus tachycardia 110-120, HTN 151/103. Able to sit patient up in bed, feed her bites of pudding with PO Zyprexa and clonidine, took sips water with assist. At 0045, patient continues with CIWA > 20, 130mg IV Phenobarbitol given per eMAR order.
[2018-05-25] MEDS: LORazepam 2 MG/ML SYRINGE 4 MG IV ×8 (04:25→19:30)
[2018-05-25 05:22] LABS: Add Manual Diff / Slide Review NO; Basophils Percent Auto 0.2 % (0-2); Eosinophils Percent Auto 0.7 % (2-4); Hematocrit 31.2 % (36-46); Hemoglobin 10.6 g/dL (12.0-16.0); Lymphocytes Percent Auto 22.4 % (25-40); Mean Corpuscular HGB Conc 33.8 % (30-36); Mean Corpuscular Volume 100.5 fL (80-100); Monocytes Percent Auto 3.4 % (3-14); Neutrophils Absolute Auto 4500 /uL (3000-5900); Neutrophils Percent Auto 73.3 % (50-75); Platelet Count 132 X10^3/uL (150-400); Red Blood Cell Count 3.11 X10^6/uL (4.0-5.2); Red Cell Distribution Width 15.4 % (11.6-14.8); White Blood Cell Count 6.2 X10^3/uL (4.5-11.0)
[2018-05-25 05:24] LABS: Calcium 7.1 mg/dL (8.4-10.2); Carbon Dioxide 19 mmol/L (22-32); Chloride 111 mmol/L (98-107); Estimated Glomerular Filt Rate > 60.0 mL/min (>60); Glucose 117 mg/dL (70-100); HEMOLYSIS 20 (0-50); Magnesium 2.2 mg/dL (1.6-2.3); Potassium 3.9 mmol/L (3.4-5.1); Sodium 135 mmol/L (137-145)
[2018-05-25 05:29] LABS: Blood Urea Nitrogen 2 mg/dL (7-17)
[2018-05-25] MEDS: OLANZapine 2.5 MG TABLET 5 MG PO (06:06)
[2018-05-25] MEDS: SODIUM CHLORIDE 0.9% 1,000 ML 100 ML IV ×3 (06:13→19:41)
[2018-05-25] MEDS: SULFA/TRIMETH 800/160 (DS) TABLET 1 TAB PO (07:30)
[2018-05-25] MEDS: cloNIDine 0.1 MG TABLET PO (07:30)
[2018-05-25] MEDS: NICOTINE 14 PATCH 14 MG TOP (08:29)
[2018-05-25] MEDS: MAGNESIUM SULFATE 2 GM, FOLIC ACID 1 MG, THIAMINE 100 MG, MULTIVITAMIN 10 ML in SODIUM ... IV (09:39)
--- NOTE | 2018-05-25 10:31 | PC.NURSE ---
Addendum entered by Asia Magallanes R.N. 05/25/18 12:52: pt becoming increasing anxious with stuttered and incomprehensible speech as well as increased heart rate to 132 bpm- medicated with 4 mg iv lorazepam atthis time Original Note: PT REACHING FOR THINGS IN THE AIR- REPORTS HAVING NO PAIN UPON QUESTIONING AND MOSTLY TALKS JIBBERISH AND STAFF UNABLE TO DECIPHER MOST OF CONVERSATION -- SHE THRASHES ABOUT AND ATTEMPTS TO PULL OUT IV LINES OR B/P CUFF-SHE IS REQUIRING FREQ DOSING OF BOTH IV LORAZEPAM AND PHENOBARBITOL TO MAINTAIN PT AND STAFF SAFETY. SHE WAS ABLE TO TAKE PO RX THIS AM WITH SIPS OF H20 AND APPLESAUCE BUT THIS IS NOT ALWAYS A RELIABLE ROUTE
--- NOTE | 2018-05-25 15:36 | P.PN_ITS ---
Subjective Date Patient Seen: 05/25/18 Time Patient Seen: 15:33 Interval history: Patient seen at bedside. Continues to get very agitated, CIWA consistently 20-25. Got a trial of Phenobarbital with ativan pushes...Will now switch to ativan drip. No fevers but BP consistently elevated. Exam Vital Signs (past 8 hours): - 05/25/18 10:03 05/25/18 11:16 05/25/18 14:03 Pulse Rate 110 H 98 H 110 H Respiratory Rate 18 20 Blood Pressure 139/73 110/75 152/117 H Pulse Oximetry 100 100 100 Oxygen Delivery Method Room Air Oxygen Flow Rate 0 Narrative Exam Narrative: Moderate distress, incomprehensive speech HEENT: PERRLA BL Neck: No lymphadenopathy, no JVD Chest: Symmetrical chest rise Respiratory: Good respiratory effort, on room air, breath sounds normal Cardiac: S1-S2, tachycardia, no murmur GI: Marked central obesity, nontender, nondistended, normoactive bowel sounds : No CVA tenderness Skin: Mildly diaphoretic, no overt lesions or bruising Neuro: Alert and oriented x3, bilateral hand tremor present, no focal deficits. CIWA 5 Extremities: Peripheral extremity pulses palpable, sensation intact bilaterally , no edema Psych: severely agitated and anxious. Restless Objective Labs Result Diagrams: 05/25/18 05:02 05/25/18 05:02 Labs: Laboratory Results - last 24 hr 05/25/18 05/25/18 05:02 05:02 WBC 6.2 RBC 3.11 L Hgb 10.6 L Hct 31.2 L MCV 100.5 H MCH 34.0 MCHC 33.8 RDW 15.4 H Plt Count 132 L Neut % (Auto) 73.3 Lymph % (Auto) 22.4 L [place] % (Auto) 3.4 Eos % (Auto) 0.7 L Baso % (Auto) 0.2 Neut # (Auto) 4500 Sodium 135 L Potassium 3.9 Chloride 111 H Carbon Dioxide 19 L BUN 2 L Creatinine 0.50 L Estimated GFR > 60.0 BUN/Creatinine Ratio 4.0 L Glucose 117 H Calcium 7.1 L Magnesium 2.2 Assessment & Plan Plan: Assessment/Plan Narrative: 42-year-old female with past medical history of anxiety, depression, alcohol abuse, tobacco dependence, and marijuana use presented to emergency department with alcohol withdrawal symptoms. She was transferred to ICU unit for further management. 1. Alcohol Withdrawal - Continues to be severely agitated with DTs..CIWA 20 - Will switch to ativan drip - Thiamine/Folic Acid IV - Stop Olanzapine for now - Continue to replete electrolytes 2. Tobacco abuse - continue nicotine patch 3. Anxiety and Depression - Stable - Stop all PO medications until patient is out of acute phase 4. UTI - UA positive for WBC, Urine cx grew >100k Ecoli - Initiated Bactrim however patient can no longer take PO...Will switch to LEvofloxacin IV for 2 more days Quality VTE Deep Vein Thrombosis/Pulmonary Embolism Present on Admission: No
[2018-05-25] MEDS: levoFLOXacin 250 MG/50 ML PIGGYBACK 50 MG IV (15:56)
[2018-05-25] MEDS: LORazepam 20 MG in SODIUM CHLORIDE 0.9% 100 ML IV (17:02)
[2018-05-25] MEDS: LABETALOL 100 MG/20ML MDV 10 MG IV (21:31)
[2018-05-25] MEDS: LORazepam 20 MG in SODIUM CHLORIDE 0.9% 100 ML 32.8 ML IV (22:04)
[2018-05-26] VITALS (9 sets, daily range): BP systolic 126–170; BP diastolic 69–109; PULSE 109–133; RESP 11–37; TEMP 35.8–37.3; O2SAT 93–97
[2018-05-26] MEDS: LORazepam 20 MG in SODIUM CHLORIDE 0.9% 100 ML 32.8 ML IV ×2 (01:57→05:20)
[2018-05-26] MEDS: SODIUM CHLORIDE 0.9% 1,000 ML 100 ML IV ×2 (05:20→16:53)
[2018-05-26 05:28] LABS: Add Manual Diff / Slide Review NO; Basophils Percent Auto 0.4 % (0-2); Eosinophils Percent Auto 0.3 % (2-4); Hematocrit 33.2 % (36-46); Hemoglobin 11.2 g/dL (12.0-16.0); Lymphocytes Percent Auto 20.4 % (25-40); Mean Corpuscular HGB Conc 33.7 % (30-36); Mean Corpuscular Hemoglobin 34.2 PG (26-34); Mean Corpuscular Volume 101.4 fL (80-100); Monocytes Percent Auto 4.4 % (3-14); Neutrophils Absolute Auto 6100 /uL (3000-5900); Neutrophils Percent Auto 74.5 % (50-75); Platelet Count 179 X10^3/uL (150-400); Red Blood Cell Count 3.27 X10^6/uL (4.0-5.2); Red Cell Distribution Width 16.3 % (11.6-14.8); White Blood Cell Count 8.2 X10^3/uL (4.5-11.0)
[2018-05-26 05:31] LABS: Calcium 6.9 mg/dL (8.4-10.2); Carbon Dioxide 22 mmol/L (22-32); Chloride 108 mmol/L (98-107); Estimated Glomerular Filt Rate > 60.0 mL/min (>60); Glucose 106 mg/dL (70-100); HEMOLYSIS < 15 (0-50); Potassium 3.6 mmol/L (3.4-5.1); Sodium 139 mmol/L (137-145)
[2018-05-26 05:33] LABS: BUN Creatinine Ratio 3.3 (6-22); Blood Urea Nitrogen < 2 mg/dL (7-17)
--- NOTE | 2018-05-26 06:33 | PC.NURSE ---
Patient continues to be going through ETOH withdrawl, CIWA score is 21, tremors, disorientation, hallucinations, agitation, Ativan gtt has been infusing at 6mg/hr. ST 110-120s, HTN, no seizures, pads on rails. See vitals and nurse assessment.
[2018-05-26] MEDS: LABETALOL 20 MG/4 ML SYRINGE 10 MG IV (07:47)
[2018-05-26] MEDS: NICOTINE 14 PATCH 14 MG TOP (14:09)
[2018-05-26] MEDS: STORED IN PHARMACY PO (14:09)
[2018-05-26] MEDS: levoFLOXacin 250 MG/50 ML PIGGYBACK 50 MG IV (14:43)
--- NOTE | 2018-05-26 16:59 | PM.PN.1 ---
Subjective Date Patient Seen: 05/26/18 Time Patient Seen: 10:59 Interval history: History of present illness Follow-up on patient with alcohol withdrawal syndrome. I suspect patient may also have a toxic affect from the IV Ativan Due to D Lactic acid levels. Which can be manifested as a normal anion gap acidosis. The IV Ativan infusion was stopped in a.m. today. I requested a D lactic acid level to be sent out. Review of systems Patient was too lethargic in a.m. today answer questions. Exam Vital Signs (past 8 hours): - 05/26/18 09:38 05/26/18 11:59 05/26/18 15:35 Temperature 99.2 F 97.6 F Pulse Rate 122 H 115 H 109 H Respiratory Rate 37 H 28 H Blood Pressure 165/101 H 130/104 H 126/69 Pulse Oximetry 94 93 Oxygen Delivery Method Room Air Oxygen Flow Rate 0 Narrative Exam Narrative: General appearance lethargic difficult to arouse no apparent distress Respiratory fairly good breath sounds are noted no wheezes no crackles Cardiovascular sinus tachycardia with a rate of about 110 per minute noted regular rhythm PMI nondisplaced +3 pulses to extremities GI soft nontender positive bowel sounds no distention no bruits no guarding no masses Neurologic limited exam no focal neurologic changes noted by nursing staff Musculoskeletal no lateralizing deficits noted passive range of motion normal no clubbing noted Skin no rashes or lesions nonjaundiced Objective Labs Result Diagrams: 05/26/18 04:52 05/26/18 04:52 Labs: Laboratory Results - last 24 hr 05/26/18 05/26/18 04:52 04:52 WBC 8.2 RBC 3.27 L Hgb 11.2 L Hct 33.2 L MCV 101.4 H MCH 34.2 H MCHC 33.7 RDW 16.3 H Plt Count 179 Neut % (Auto) 74.5 Lymph % (Auto) 20.4 L [place] % (Auto) 4.4 Eos % (Auto) 0.3 L Baso % (Auto) 0.4 Neut # (Auto) 6100 H Sodium 139 Potassium 3.6 Chloride 108 H Carbon Dioxide 22 BUN < 2 L Creatinine 0.60 Estimated GFR > 60.0 BUN/Creatinine Ratio 3.3 L Glucose 106 H Calcium 6.9 L Assessment & Plan Plan: Assessment/Plan Narrative: 1. Alcohol Withdrawal - ativan IV infusion was discontinued in a.m. today - Thiamine/Folic Acid intravenously provided daily - monitor labs. Replace electrolytes as necessary 2. Tobacco cigarette addiction - nicotine patch topically daily 3. Anxiety and Depression - noted in history. Will plan to discuss with patient when she is able to engage in conversation 4. E coli UTI - UA positive for WBC, Urine cx grew >100k Ecoli - initially Bactrim provided - LEvofloxacin IV provided once patient was unable to take the oral Bactrim 5. Concern for D lactic acidosis - note that propylene glycol is used for IV Ativan. With excessive dosing of IV Ativan patient is at risk for D lactic acidosis - clinical manifestations of the lactic acidosis include slurred speech and altered level of consciousness gait disturbance - this can be manifested as a normal anion gap metabolic acidosis. IV Ativan was stopped in a.m. today. - D lactic acid level was requested to be sent out Time Spent With Patient Time with patient: 25 - 35 minutes (25 min) Quality VTE Deep Vein Thrombosis/Pulmonary Embolism Present on Admission: No
[2018-05-26] MEDS: PHENobarbital 65 MG/ML VIAL 130 MG IV (19:08)
--- NOTE | 2018-05-26 19:11 | PC.NURSE ---
Patient getting increasingly agitated. Repeated attempts to get out of bed and patient mumbling and cussing in room. Patient appears to still be hallucinating, talking about a cat on the bed and talking to people who are not there. Dr. Brewer notified of increased CIWA score and agitation. Heart rate up to 130 when attempting to sit up and get out of bed. Physician instructed to attempt to give patient some ice to see if she can take PO medications. Patient given small amount of ice, chewed for a bit and then began coughing. Updated Dr. Brewer and received order for a one time dose of phenobarbitol. Given per orders.
[2018-05-27] VITALS (11 sets, daily range): BP systolic 119–175; BP diastolic 76–110; PULSE 105–137; RESP 16–31; TEMP 36.1–37.2; O2SAT 86–97
--- NOTE | 2018-05-27 01:45 | PC.NURSE ---
Placed on 2L NC as sats on RA dropping to 86%
[2018-05-27] MEDS: SODIUM CHLORIDE 0.9% 1,000 ML 100 ML IV (03:04)
[2018-05-27] MEDS: LABETALOL 20 MG/4 ML SYRINGE 10 MG IV (03:08)
--- NOTE | 2018-05-27 05:38 | PC.NURSE ---
Disoriented to state, place, time and situation. Picking at things in the air, having conversations with ??? Now agitated and restless, incontinent of stool.
[2018-05-27] MEDS: cloNIDine 0.1 MG TABLET PO (08:47)
[2018-05-27] MEDS: NICOTINE 14 PATCH 14 MG TOP (09:26)
[2018-05-27 11:12] LABS: Hematocrit 29.2 % (36-46); Hemoglobin 10.1 g/dL (12.0-16.0); Mean Corpuscular HGB Conc 34.5 % (30-36); Mean Corpuscular Hemoglobin 34.5 PG (26-34); Platelet Count 211 X10^3/uL (150-400); Red Blood Cell Count 2.92 X10^6/uL (4.0-5.2); Red Cell Distribution Width 16.1 % (11.6-14.8); White Blood Cell Count 8.4 X10^3/uL (4.5-11.0)
[2018-05-27 11:17] LABS: Alanine Aminotransferase 16 IU/L (9-52); Albumin 3.5 g/dL (3.5-5.0); Albumin Globulin Ratio 1.3 (1.0-2.8); Alkaline Phosphatase 73 U/L (38-126); Aspartate Aminotransferase 30 IU/L (14-36); Bilirubin Total 0.5 mg/dL (0.2-1.3); Blood Urea Nitrogen 2 mg/dL (7-17); Calcium 6.7 mg/dL (8.4-10.2); Carbon Dioxide 22 mmol/L (22-32); Chloride 106 mmol/L (98-107); Estimated Glomerular Filt Rate > 60.0 mL/min (>60); Globulin 2.8 g/dL (1.7-4.1); Glucose 100 mg/dL (70-100); HEMOLYSIS 31 (0-50); Lipase 21 U/L (23-300); Potassium 3.4 mmol/L (3.4-5.1); Sodium 141 mmol/L (137-145); Total Protein 6.3 g/dL (6.3-8.2)
[2018-05-27 11:33] LABS: Anisocytosis 2+; Microcytosis 1+; Neutrophils Absolute Manual 6216 /uL (3000-5900); Total Cells Counted 100
--- NOTE | 2018-05-27 15:36 | CM.DPC ---
DCP/Note: Reviewed chart. CUSTOMER MARKETING ASSISTANT attempted to meet with patient to discuss d/c planning and substance abuse/ETOH. Patient remains groggy and unable to arouse. Spoke with RN whom reports patient has had no ativan since 05-26-18. Call [facility] to check on [facility] background? Patient currently not enrolled in any outpatient services. Previous CUSTOMER MARKETING ASSISTANT has provided patient with community resources for follow up. P: Anticipate home when stable. Continue to follow/monitor closely. HARVEY Malik
[2018-05-27] MEDS: METOPROLOL 25 MG TABLET PO (17:59)
--- NOTE | 2018-05-27 20:34 | PM.PN.1 ---
Subjective Date Patient Seen: 05/27/18 Time Patient Seen: 15:35 Interval history: History of present illness Follow-up on patient with alcohol withdrawal syndrome. Patient received an IV Ativan infusion early in hospital course. Patient had a prolonged infusion of the IV Ativan. A D-lactic acidosis was suspected since propylene glycol Is used in IV Ativan medication. Manifestations of the D-lactic acidosis includes slurred speech and alteration in level of consciousness And gait disturbance. Note a normal anion gap acidosis can be seen which is certainly very different than L-lactic acidosis with An widened anion gap acidosis. Electrolyte disturbances and uncontrolled hypertension also note Review of systems Patient notes no chest pain or shortness of breath. Mild nausea noted. Exam Vital Signs (past 8 hours): - 05/27/18 15:27 Temperature 98.9 F Pulse Rate 106 H Respiratory Rate 22 Blood Pressure 127/77 Pulse Oximetry 95 Oxygen Delivery Method Room Air Oxygen Flow Rate 2 Narrative Exam Narrative: General appearance patient is still a bit lethargic but certainly much more arousable than she was yesterday. Patient appears restless. Psychiatric oriented to self only at this time. Mood is a bit temperamental the patient is still cooperative. Respiratory fairly clear to auscultation no wheezes no crackles fairly good airflow noted Cardiovascular sinus tachycardia with rate of 118 per minute regular rhythm.. Plus three pulses to extremities noted. GI mild diffuse tenderness to palpation positive bowel sounds noted no distention no guarding no bruits Neurologic no tremulous mannerisms noted cranial nerves 2-12 appear grossly intact no focal neurologic changes noted Objective Labs Result Diagrams: 05/27/18 10:05 05/27/18 10:05 Labs: Laboratory Results - last 24 hr 05/27/18 05/27/18 10:05 10:05 WBC 8.4 RBC 2.92 L Hgb 10.1 L Hct 29.2 L MCV 100.0 MCH 34.5 H MCHC 34.5 RDW 16.1 H Plt Count 211 Total Counted 100 Seg Neutrophils % 69.0 Band Neutrophils % 5.0 Lymphocytes % (Manual) 21.0 L Monocytes % (Manual) 4.0 Basophils % (Manual) 1.0 Neutrophils # (Manual) 6216 H RBC Morphology Not Reportable Anisocytosis 2+ H Microcytosis 1+ H Sodium 141 Potassium 3.4 Chloride 106 Carbon Dioxide 22 BUN 2 L Creatinine 0.50 L Estimated GFR > 60.0 BUN/Creatinine Ratio 4.0 L Glucose 100 Calcium 6.7 L Total Bilirubin 0.5 AST 30 ALT 16 Alkaline Phosphatase 73 Total Protein 6.3 Albumin 3.5 Globulin 2.8 Albumin/Globulin Ratio 1.3 Lipase 21 L D Assessment & Plan Plan: Assessment/Plan Narrative: Alcohol Withdrawal - ativan IV infusion was discontinued in a.m. May 26 - Thiamine/Folic Acid intravenously provided daily initially but changed to oral administration May 27 - monitor labs. Replace electrolytes as necessary Can provide oral Ativan as needed on May 27 2. Tobacco cigarette addiction - nicotine patch topically daily 3. Anxiety and Depression - noted in history. Will plan to discuss with patient when she is able to engage in conversation 4. E coli UTI - UA positive for WBC, Urine cx grew >100k Ecoli - initially Bactrim provided - LEvofloxacin IV provided since patient was unable to take the oral Bactrim Will resume the oral Bactrim antibiotic to treat and stop the IV Levaquin. 5. Concern for D lactic acidosis - note that propylene glycol is used for IV Ativan. With excessive dosing of IV Ativan patient is at risk for D lactic acidosis - clinical manifestations of the lactic acidosis include slurred speech and altered level of consciousness gait disturbance - this can be manifested as a normal anion gap metabolic acidosis. IV Ativan was stopped in a.m. May 26. - D lactic acid level was requested to be sent out but was not sent until the a.m. of May 27 Time Spent With Patient Time with patient: 25 - 35 minutes (25 min to visit with the patient) Quality VTE Deep Vein Thrombosis/Pulmonary Embolism Present on Admission: No
[2018-05-27] MEDS: CAPTOPRIL 12.5 MG TABLET PO (23:47)
[2018-05-27] MEDS: SULFA/TRIMETH 800/160 (DS) TABLET 1 TAB PO (23:47)
[2018-05-28] VITALS (18 sets, daily range): BP systolic 116–183; BP diastolic 67–117; PULSE 88–112; RESP 17–30; TEMP 36.4–37; O2SAT 92–99
[2018-05-28] MEDS: cloNIDine 0.1 MG TABLET PO ×2 (01:08→19:21)
[2018-05-28] MEDS: LORazepam 1 MG TABLET PO (01:09)
[2018-05-28] MEDS: LABETALOL 20 MG/4 ML SYRINGE 10 MG IV (03:15)
[2018-05-28] MEDS: SODIUM CHLORIDE 0.9% FLUSH 10 ML IV ×3 (03:37→23:15)
--- NOTE | 2018-05-28 04:02 | PC.NURSE ---
Was awake and restless, ate a container of sherbet but couldn't sleep, so got her up and showered and shampooed, followed all instructions and was pleasent. Used walker with cueing and supported own weight. Tolerated very well. Medicated with captopril, clonidine and labatolol for attempted control of BP, and the labatolol worked best. Continues to have frequent incontinent small loose stools, more mucous like.
[2018-05-28 05:34] LABS: Add Manual Diff / Slide Review NO; Basophils Percent Auto 0.2 % (0-2); Eosinophils Percent Auto 0.9 % (2-4); Hematocrit 29.5 % (36-46); Hemoglobin 10.2 g/dL (12.0-16.0); Lymphocytes Percent Auto 25.9 % (25-40); Mean Corpuscular HGB Conc 34.5 % (30-36); Mean Corpuscular Hemoglobin 34.5 PG (26-34); Monocytes Percent Auto 8.8 % (3-14); Neutrophils Absolute Auto 4300 /uL (3000-5900); Neutrophils Percent Auto 64.2 % (50-75); Platelet Count 228 X10^3/uL (150-400); Red Blood Cell Count 2.95 X10^6/uL (4.0-5.2); Red Cell Distribution Width 15.4 % (11.6-14.8); White Blood Cell Count 6.8 X10^3/uL (4.5-11.0)
[2018-05-28 05:44] LABS: Alanine Aminotransferase 16 IU/L (9-52); Albumin 3.5 g/dL (3.5-5.0); Albumin Globulin Ratio 1.3 (1.0-2.8); Alkaline Phosphatase 79 U/L (38-126); Aspartate Aminotransferase 26 IU/L (14-36); Bilirubin Total 0.3 mg/dL (0.2-1.3); Blood Urea Nitrogen 3 mg/dL (7-17); Calcium 6.9 mg/dL (8.4-10.2); Carbon Dioxide 20 mmol/L (22-32); Chloride 105 mmol/L (98-107); Estimated Glomerular Filt Rate > 60.0 mL/min (>60); Globulin 2.8 g/dL (1.7-4.1); Glucose 109 mg/dL (70-100); Potassium 2.8 mmol/L (3.4-5.1); Sodium 136 mmol/L (137-145); Total Protein 6.3 g/dL (6.3-8.2)
[2018-05-28 06:08] LABS: HEMOLYSIS 15 (0-50)
[2018-05-28 06:40] LABS: Magnesium 1.6 mg/dL (1.6-2.3)
[2018-05-28] MEDS: SULFA/TRIMETH 800/160 (DS) TABLET 1 TAB PO (09:58)
[2018-05-28] MEDS: FOLIC ACID 1 MG TABLET 2 MG PO (09:58)
[2018-05-28] MEDS: POTASSIUM CHLORIDE 20 MEQ TAB PO ×3 (09:58→18:23)
[2018-05-28] MEDS: MULTIVITAMIN 1 TABLET 1 TAB PO (09:59)
[2018-05-28] MEDS: NICOTINE 14 PATCH 14 MG TOP (09:59)
[2018-05-28] MEDS: METOPROLOL 25 MG TABLET PO ×2 (09:59→20:32)
[2018-05-28] MEDS: THIAMINE 100 MG TABLET 200 MG PO (10:00)
--- NOTE | 2018-05-28 18:24 | PM.PN.1 ---
Subjective Date Patient Seen: 05/28/18 Time Patient Seen: 16:24 Interval history: History of present illness Follow-up on patient with a severe grade alcohol withdrawal syndrome. Patient received intravenous IV infusion of Ativan during the 1st days in the hospital. When I came on duty on SundayMay 26 I had a concern patient may have a D-lactic acidosis, which is the Stereoisomer of the L-Lactic Acidosis we are most familiar with. The symptom effect of D-lactic acidosis is memory loss, gait disturbance, slurred speech which may prompt continuance of the IV Ativan infusion. For Ativan to be delivered via IV it is mixed in solution with propylene glycol which metabolizes to D-Lactic non anion gap Acidosis, which is of course quite different than the anion gap acidosis associated with L-lactic acidosis Patient had a urinary tract infection early in hospital course that that is been treated with the Bactrim during hospital course and can be discontinued. Review of systems Note chest pain or shortness of breath no nausea. Patient does complain of the fumbling her hands when trying to hold utensils for self feeding. Exam Vital Signs (past 8 hours): - 05/28/18 12:23 Temperature 97.5 F L Pulse Rate 88 Respiratory Rate 27 H Blood Pressure 136/95 H Pulse Oximetry 99 Oxygen Delivery Method Room Air Oxygen Flow Rate 2 Narrative Exam Narrative: General appearance awake and alert no apparent distress Psychiatric oriented much better today for the 1st time. Patient knew the years 2017. Yesterday she thought the year was 1917. Today she knows the president is Sunil russell where as she was unable to say who the president was yesterday yesterday, Respiratory fairly clear to auscultation no wheezes crackles fairly good airflow Cardiovascular heart rate a little high at 105 regular rhythm no murmur +3 pulses to extremities GI fairly benign soft nontender positive bowel sounds no masses no distension no guarding Neurologic no focal neurologic changes apart from the family as stated regarding her hands. Patient also appears to have problem with vision with horizontal movement of the eyes. Skin no rashes or lesions nonjaundiced good turgor Objective Labs Result Diagrams: 05/28/18 04:48 05/28/18 04:48 Labs: Laboratory Results - last 24 hr 05/28/18 05/28/18 05/28/18 04:48 04:48 04:48 WBC 6.8 RBC 2.95 L Hgb 10.2 L Hct 29.5 L MCV 100.0 MCH 34.5 H MCHC 34.5 RDW 15.4 H Plt Count 228 Neut % (Auto) 64.2 Lymph % (Auto) 25.9 Bryan % (Auto) 8.8 Eos % (Auto) 0.9 L Baso % (Auto) 0.2 Neut # (Auto) 4300 Sodium 136 L Potassium 2.8 L Chloride 105 Carbon Dioxide 20 L BUN 3 L Creatinine 0.50 L Estimated GFR > 60.0 BUN/Creatinine Ratio 6.0 Glucose 109 H Calcium 6.9 L Magnesium 1.6 Total Bilirubin 0.3 AST 26 ALT 16 Alkaline Phosphatase 79 Total Protein 6.3 Albumin 3.5 Globulin 2.8 Albumin/Globulin Ratio 1.3 Assessment & Plan Plan: Assessment/Plan Narrative: Alcohol Withdrawal Syndrome (resolving) - ativan IV infusion was discontinued in a.m. May 26 - Thiamine/Folic Acid intravenously provided daily initially but changed to oral administration May 27 May 28 time changing back to a more aggressive regimen of IV Thiamine at 200 mg q.8 hours. Patient with symptoms of Wernicke's to address if possible with more aggressive IV Thiamine therapy. - monitor labs. Replace electrolytes as necessary Can provide oral Ativan as needed on May 27 but no further IV Ativan 2. Tobacco cigarette addiction - nicotine patch topically daily 3. Anxiety and Depression - noted in history. Will plan to discuss with patient when she is able to engage in conversation 4. E coli UTI - UA positive for WBC, Urine cx grew >100k Ecoli - completed therapy will continue the antibiotic 5. Concern for D lactic acidosis - note that propylene glycol is used for IV Ativan. With excessive dosing of IV Ativan patient is at risk for D lactic acidosis - clinical manifestations of the lactic acidosis include slurred speech and altered level of consciousness gait disturbance - this can be manifested as a normal anion gap metabolic acidosis. IV Ativan was stopped in a.m. May 26. - D lactic acid level was requested to be sent out but was not sent until the a.m. of May 27 Depression As discussed with patient we will start Celexa 20 mg daily. Continue her usual dose of BuSpar for anxiety regularly. Alcohol addiction As discussed with patient at bedside with her significant other boyfriend Arnaldo, who could be the nuclear weapons custodian of the [employer] that is provided To the patient with a taper in the outpatient setting with the provision that she is not drinking from day-to-day as he administers the medication From 2-3 times per day down to eventually 1 time per day the final 10 days of the month. Naltrexone 50 mg po daily can be provided to thwart urges toward alcohol. Which can be provided to individuals not requiring opiate therapy for chronic pain management. Time Spent With Patient Time with patient: 25 - 35 minutes (30 min ) Quality VTE Deep Vein Thrombosis/Pulmonary Embolism Present on Admission: No
[2018-05-28] MEDS: WATER IV (23:15)
[2018-05-28] MEDS: DEXTROSE 5% IV (23:15)
[2018-05-28] MEDS: THIAMINE IV (23:15)
[2018-05-29] VITALS (7 sets, daily range): BP systolic 113–164; BP diastolic 65–106; PULSE 98–115; RESP 18–20; TEMP 36.4–37.6; O2SAT 94–100
[2018-05-29] MEDS: LORazepam 1 MG TABLET PO (00:06)
[2018-05-29 04:56] LABS: Add Manual Diff / Slide Review NO; Basophils Percent Auto 0.4 % (0-2); Eosinophils Percent Auto 1.1 % (2-4); Hematocrit 31.5 % (36-46); Hemoglobin 10.7 g/dL (12.0-16.0); Lymphocytes Percent Auto 34.2 % (25-40); Mean Corpuscular HGB Conc 34.1 % (30-36); Mean Corpuscular Hemoglobin 33.8 PG (26-34); Mean Corpuscular Volume 99.3 fL (80-100); Monocytes Percent Auto 8.3 % (3-14); Neutrophils Absolute Auto 3400 /uL (3000-5900); Platelet Count 331 X10^3/uL (150-400); Red Blood Cell Count 3.18 X10^6/uL (4.0-5.2); Red Cell Distribution Width 15.7 % (11.6-14.8)
[2018-05-29 05:05] LABS: Alanine Aminotransferase 24 IU/L (9-52); Albumin 3.4 g/dL (3.5-5.0); Albumin Globulin Ratio 1.2 (1.0-2.8); Alkaline Phosphatase 75 U/L (38-126); Aspartate Aminotransferase 27 IU/L (14-36); Bilirubin Total 0.2 mg/dL (0.2-1.3); Blood Urea Nitrogen 3 mg/dL (7-17); Calcium 7.7 mg/dL (8.4-10.2); Carbon Dioxide 22 mmol/L (22-32); Chloride 105 mmol/L (98-107); Estimated Glomerular Filt Rate > 60.0 mL/min (>60); Globulin 2.8 g/dL (1.7-4.1); Glucose 103 mg/dL (70-100); HEMOLYSIS < 15 (0-50); Potassium 3.4 mmol/L (3.4-5.1); Sodium 137 mmol/L (137-145); Total Protein 6.2 g/dL (6.3-8.2)
[2018-05-29] MEDS: THIAMINE IV (06:25)
[2018-05-29] MEDS: SODIUM CHLORIDE 0.9% FLUSH 10 ML IV ×3 (06:25→21:55)
[2018-05-29] MEDS: DEXTROSE 5% IV (06:25)
[2018-05-29] MEDS: WATER IV (06:25)
[2018-05-29] MEDS: FOLIC ACID 1 MG TABLET 2 MG PO (09:09)
[2018-05-29] MEDS: MULTIVITAMIN 1 TABLET 1 TAB PO (09:10)
[2018-05-29] MEDS: METOPROLOL 25 MG TABLET PO ×2 (09:11→21:54)
[2018-05-29] MEDS: POTASSIUM CHLORIDE 20 MEQ TAB PO (09:11)
[2018-05-29] MEDS: NICOTINE 14 PATCH 14 MG TOP (09:11)
[2018-05-29] MEDS: CITALOPRAM 20 MG TABLET PO (09:11)
--- NOTE | 2018-05-29 12:10 | PM.PN.1 ---
Subjective Date Patient Seen: 05/29/18 Interval history: Events reviewed, patient seen and examined. She is awake and alert today. She has a very minimal tremor. Patient received one dose of ativan last night to help her sleep. She is oriented to the hospital but not the year. She knows who the president is. She is calm Exam Vital Signs (past 8 hours): - 05/29/18 04:50 05/29/18 09:09 Temperature 98.1 F 98 F Pulse Rate 100 H 100 H Respiratory Rate 18 18 Blood Pressure 113/74 139/91 H Pulse Oximetry 94 99 Oxygen Delivery Method Room Air Oxygen Flow Rate 2 Narrative Exam Narrative: Lungs: Clear to auscultation CV: RRR nl Sl S2 Abd: Soft/ non tender non distended Ext: no edema No asterixis, mild tremor Objective Labs Result Diagrams: 05/29/18 04:37 05/29/18 04:37 Labs: Laboratory Results - last 24 hr 05/29/18 05/29/18 04:37 04:37 WBC 6.0 RBC 3.18 L Hgb 10.7 L Hct 31.5 L MCV 99.3 MCH 33.8 MCHC 34.1 RDW 15.7 H Plt Count 331 Neut % (Auto) 56.0 Lymph % (Auto) 34.2 [place]val % (Auto) 8.3 Eos % (Auto) 1.1 L Baso % (Auto) 0.4 Neut # (Auto) 3400 Sodium 137 Potassium 3.4 Chloride 105 Carbon Dioxide 22 BUN 3 L Creatinine 0.50 L Estimated GFR > 60.0 BUN/Creatinine Ratio 6.0 Glucose 103 H Calcium 7.7 L Total Bilirubin 0.2 AST 27 ALT 24 Alkaline Phosphatase 75 Total Protein 6.2 L Albumin 3.4 L Globulin 2.8 Albumin/Globulin Ratio 1.2 Assessment & Plan (1) Alcohol withdrawal syndrome: Problem details: Continue prn Ativan PT consult for gait Discontinue IV thiamine, will start po Multivitamin and Thiamine Possible discharge home tomorrow. SW consult for possible treatment options Qualifiers: Complication of substance-induced condition: Current visit: Yes Status: Acute Quality VTE Deep Vein Thrombosis/Pulmonary Embolism Present on Admission: No
--- NOTE | 2018-05-29 14:35 | PC.NURSE ---
Day Shift Note This job specification writer has reviewed and agrees with Jessica MCGEE's charting. Pt alert and oriented to self, place, and time. Unsteady on feet but improved from previous days. CIWA 2-3. No Ativan given this shift.
--- NOTE | 2018-05-29 15:55 | PT.IIE ---
Current Diagnoses Alcohol dependence with withdrawal with perceptual disturbance (05/22/18) Alcohol dependence with withdrawal, unspecified (05/22/18) Adverse effect of unspecified drugs, medicaments and biological substances, initial encounter (05/22/18) Surgical History (Last Updated 05/23/18 @ 03:12 by NOBLE Butts) History of section (Acute) Medical History (Last Updated 05/23/18 @ 03:09 by NOBLE Butts) Alcohol abuse (Chronic) Ankle fracture, left (Chronic) Anxiety and depression (Chronic) Hip fracture requiring operative repair (Chronic) Marijuana use (Chronic) Seasonal allergies (Chronic) Tobacco dependence (Chronic) Physical Therapy Inpatient Evaluation/Re-Eval M1 PT/OT-IP Prior Functional Status Start: 05/29/18 16:33 Freq: NEEDED Status: Active Protocol: Document 05/29/18 15:55 AB (Rec: 05/29/18 16:51 AB [id number]) Medical Review Prior Functional Status Medical History Reviewed Yes Communication able to make needs known Mobility and Gait pt stated that she is independent with all mobilities and ambulation without AD Social History Household Members significant other Living Arrangements House Number of Floors (Floors) One Floor Number of Stairs To Enter/Railing? 3 steps without rails Home Environment Standard Height Toilet Employment Status Unemployed Additional Social History Comment Pt lives in [place]. pt stated that her boyfriend works from 830 to 5 pm; her best friend might be able to assist her when her boyfriend is not around. stated that her boyfriend is renovating their bathroom and she goes to her friend house to take a shower. M2 PT-IP Current Condition Start: 05/29/18 16:33 Freq: NEEDED Status: Active Protocol: Document 05/29/18 15:55 AB (Rec: 05/29/18 16:51 AB [id number]) Physical Therapy Current Condition Current Condition Evaluation Date 05/29/18 Treatment Diagnosis alcohol withdrawal syndrome Onset Date 05/22/18 Precautions Other Precautions falls M3 PT-IP Subjective Start: 05/29/18 16:33 Freq: NEEDED Status: Active Protocol: Document 05/29/18 15:55 AB (Rec: 05/29/18 16:51 AB [id number]) Subjective Physical Therapy Visit Type Type Initial Evaluation Visit Start Time 15:55 Visit Stop Time 16:20 Total Visit Minutes 25 Number of PHLEBOTOMY SUPPORT TECH Visits 0 Physical Therapy Visit Comments Patient Comments pt agreeable to do PT Therapy Pain Assessment Pain Present Pain Present Denied Pain M4 PT-IP Mobility and Gait Start: 05/29/18 16:33 Freq: NEEDED Status: Active Protocol: Document 05/29/18 15:55 AB (Rec: 05/29/18 16:51 AB [id number]) PT-Bed Mobility Assessment Supine to Sit Supine to Sit Standby Assistance Sit to Supine Sit to Supine Standby Assistance Scooting Scooting to Edge of Bed Standby Assistance PT-Transfer Assessment Sit to and From Stand Sit to and from Stand Contact Guard Assistance Equipment Transfer Assistive Device Gait Belt Front Wheeled Walker Orthotic/Prosthetic Devices or Brace: No Gait Assessment Gait Gait Assistance Required: Minimum Assistance Distance (Feet) 50 Able to Maintain Weight Bearing Status Yes During Gait Assistive Devices Assistive Device Gait Belt Front Wheeled Walker Orthotic/Prosthetic Devices or Brace: No Gait Deviations General Gait Pattern Antalgic Decreased Stride Length Decreased Feet Clearance Factors Limiting Gait Function Factors Limiting Gait Function Decreased Activity Tolerance Decreased Strength Difficulty Following Directions Poor Balance Poor Safety Awareness Comments Gait Comments pt can be imulsive and requires cues for safety. assessed ambulation without AD and pt completed ~ 20 ft requiring min to mod A. presents with unsteady gait and with (+) tremors (head and trunk). pt requires frequent cues for safety. assessed pt 's ambulation using FWW and completed ~ 40 ft requiring min A and cues with improvement with standing stability but continues to require assist and cues for safety. Recommending use of FWW at this time. PT-Balance Assessment Sitting Balance and Reactions Static Sitting Balance Ability Good Dynamic Sitting Balance Ability Good Standing Balance and Reactions Static Standing Balance Ability Fair Dynamic Standing Balance Ability Poor Device Used FWW M5 PT-IP Objective Assessments Start: 05/29/18 16:33 Freq: NEEDED Status: Active Protocol: Document 05/29/18 15:55 AB (Rec: 05/29/18 16:51 AB [id number]) Orientation Orientation/Cognition Level of Alertness Alert Orientation Name Safety Awareness Decreased Safety Awareness Gross Range of Motion Lower Extremity ROM Assessment Within Functional Limits Strength Lower Extremity Strength Assessment Within Functional Limits M6 PT-IP Treatment Start: 05/29/18 16:33 Freq: NEEDED Status: Active Protocol: Document 05/29/18 15:55 AB (Rec: 05/29/18 16:51 AB [id number]) Physical Therapy Treatment Education Education Provided Safety M7 PT-IP Assessment and Plan Start: 05/29/18 16:33 Freq: NEEDED Status: Active Protocol: Document 05/29/18 15:55 AB (Rec: 05/29/18 16:51 AB [id number]) PT Summary Assessment and Plan Potential Rehabilitation Potential Fair Status of Condition at Evaluation Evolving Summary Impairments Pain ROM Strength Balance Coordination Sensation Tone Cognition Bed Mobility Transfers Gait Activity Tolerance Assessment Summary Pt requiring 1 person assist with mobility and presents with unsteady gait. d/c plan depending on progress but may require SNF rehab at this time to improve strength and standing balance. At this time will require 24/7 assist. will continue to assess Goals Bed Mobility Goal Independent Transfer Goal Independent Standby Assistance Gait Goal Standby Assistance Front Wheel Walker Gait Distance 200 Other Goals uup/down 3 steps without rails SBA Days to Meet Goals 5 Frequency of Treatment Frequency Of Treatment Once a Day Treatment Plan Physical Therapy Treatment Plan Bed Mobility Training Transfer Training Gait Training Therapeutic Exercise Balance Retraining Discharge Planning Neuromuscular Re-ed Coordination Retraining Manual Therapy Other Recommendations and Next Treatment ambulation, standing balance Focus Recommendations To Nursing Amount of Assist Needed 1 Person Assist Discharge Recommendations PT Discharge Recommendations Home with 24/7 Assist Home Health SNF Rehab Other Discharge Recommendations home with 24/7 and Homehealth PT vs SNF Equipment Needed for Home Before FWW: depending on progress Discharge
--- NOTE | 2018-05-29 20:00 | PC.NURSE ---
Pt pleasant and cooperative. Continues to be implusive with movements. Sat in chair for meal, with chair alarm. Reinforced safety and call light use. Continue with bed/chair alarm.
[2018-05-30 00:01] VITALS: BP 160/99; PULSE 90
[2018-05-30] MEDS: cloNIDine 0.1 MG TABLET PO (00:01)
[2018-05-30] MEDS: LORazepam 1 MG TABLET PO ×3 (00:01→14:37)
[2018-05-30 00:31] VITALS: BP 160/99; PULSE 100; RESP 18; TEMP 36.9; O2SAT 96
[2018-05-30 04:50] VITALS: BP 121/83; PULSE 104; RESP 16; TEMP 36.1; O2SAT 94
[2018-05-30 05:03] LABS: Add Manual Diff / Slide Review NO; Basophils Percent Auto 0.9 % (0-2); Hematocrit 30.5 % (36-46); Hemoglobin 10.3 g/dL (12.0-16.0); Lymphocytes Percent Auto 44.5 % (25-40); Mean Corpuscular HGB Conc 33.9 % (30-36); Mean Corpuscular Hemoglobin 33.4 PG (26-34); Mean Corpuscular Volume 98.6 fL (80-100); Monocytes Percent Auto 9.1 % (3-14); Neutrophils Absolute Auto 3000 /uL (3000-5900); Neutrophils Percent Auto 44.5 % (50-75); Platelet Count 415 X10^3/uL (150-400); Red Blood Cell Count 3.09 X10^6/uL (4.0-5.2); Red Cell Distribution Width 15.4 % (11.6-14.8); White Blood Cell Count 6.8 X10^3/uL (4.5-11.0)
[2018-05-30 05:07] LABS: Alanine Aminotransferase 28 IU/L (9-52); Albumin 3.5 g/dL (3.5-5.0); Albumin Globulin Ratio 1.3 (1.0-2.8); Alkaline Phosphatase 71 U/L (38-126); Aspartate Aminotransferase 24 IU/L (14-36); Bilirubin Total 0.3 mg/dL (0.2-1.3); Blood Urea Nitrogen 5 mg/dL (7-17); Calcium 8.3 mg/dL (8.4-10.2); Carbon Dioxide 25 mmol/L (22-32); Chloride 103 mmol/L (98-107); Estimated Glomerular Filt Rate > 60.0 mL/min (>60); Globulin 2.8 g/dL (1.7-4.1); Glucose 105 mg/dL (70-100); HEMOLYSIS < 15 (0-50); Potassium 3.7 mmol/L (3.4-5.1); Sodium 137 mmol/L (137-145); Total Protein 6.3 g/dL (6.3-8.2)
[2018-05-30 08:20] VITALS: BP 141/89; PULSE 114; RESP 20; TEMP 36.8; O2SAT 98
--- NOTE | 2018-05-30 09:12 | P.DS_ITS ---
History of Present Illness Date Patient Seen: 05/30/18 Chief complaint: ETOH withdraw Narrative: The patient is a 42-year-old female with PMH significant for anxiety , depression, ETOH abuse, tobacco dependence, and marijuana use. Transported via [facility] from [place] for ETOH withdrawal symptoms. Patient woke in a.m. of 05/22/2018 with nausea, vomiting/dry heaves (reports 10+ episodes, bilious, non-bloody), and diarrhea. Associated symptoms include tremulousness, diaphoresis, insomnia, headache, dizziness, and tactile disturbances. Denies chest pain, palpitations, dyspnea, or abdominal pain. Patient has an underlying history of heavy alcohol dependence / abuse. Patient reports her alcohol use as on and off for a number of years, she is reluctant to provide definitive time frame. Drinks 1 pint of hard liquor daily. Last drink 24-48 hours prior to hospital presentation. On presentation to the ED was noted to have a score of 25. ETOH level less than 10. Patient admits to prior history of ETOH withdrawal with similar symptoms. She does admit to history of aggression during ETOH withdrawal. However, denies withdrawal associated delirium and seizures. Patient denies recreational drug use, however her urine drug screen was positive for marijuana and benzodiazepines. Discharge Providers Date of admission: 05/22/18 21:34 Primary care physician: Victor Manuel Fisher MD Consults: 05/27/18 01:45 Consult to Respiratory Therapy Evaluate & Treat Comment: Physician Instructions: Evaluate and treat 05/29/18 12:10 Consult to Physical Therapy Evaluate & Treat Comment: Physician Instructions: Evaluate and Treat Discharge provider: Valeria Grayson MD Discharge Date: 05/30/18 Summary Discharge Diagnosis: Alcohol withdrawal with delerium Delerium Tremens Anxiety Depression Hypertension Anemia Hospital Course: Patient admitted to the hospital for alcohol withdrawal. She had significant DT's that require multimodality treatment. She was ultimately weaned off the Ativan and had improved mentation. She was hypertensive and will be started on treatment at discharge. Patient was deemed appropriate for discharge home. Status at Discharge Cognitive/behavioral status at discharge: Back to baseline Functional status at discharge: independent ambulation Overall status at discharge: patient is back to baseline Time Spent with Patient Less than 30 minutes Exam Vital Signs (past 8 hours): - 05/30/18 04:50 05/30/18 08:20 Temperature 97.0 F L 98.2 F Pulse Rate 104 H 114 H Respiratory Rate 16 20 Blood Pressure 121/83 141/89 H Pulse Oximetry 94 98 Oxygen Delivery Method Room Air Oxygen Flow Rate 0 Narrative Exam Narrative: Awake alert and appropriate Const General: cooperative, healthy appearing, comfortable and well developed Nutritional Appearance: average body habitus Orientation: alert and awake [facility] Head: normal to inspection, normocephalic and atraumatic Ears: hearing grossly normal bilaterally Nose: external nose normal Face and sinus: normal facial exam Mouth: oral mucosae normal Teeth and gingiva: dentition normal Eyes General: appearance normal, both eyes and all related structures Neck Neck: normal visual inspection Chest Chest: normal inspection of the chest Resp Effort & Inspection: normal respiratory effort and able to speak in complete sentences Auscultation: clear to auscultation bilaterally Cardio Palpation: normal PMI Rate: regular rate Rhythm: regular rhythm Heart Sounds: S1 normal and S2 normal GI Inspection: normal to inspection Palpation: soft and no hepatosplenomegaly Percussion: normal to percussion Auscultation: normal bowel sounds and normoactive bowel sounds Extrem General: normal to inspection Right upper extremity: normal to inspection Left upper extremity: normal to inspection Right lower extremity: normal to inspection Left lower extremity: normal to inspection Psych Speech and Movement: speech and movement normal Mood: congruent mood Affect: sad Attitude: cooperative Thought Process: normal Thought Content: normal Judgment: judgment good Objective Labs Result Diagrams: 05/30/18 04:30 05/30/18 04:30 Labs: Laboratory Results - last 24 hr 05/30/18 05/30/18 04:30 04:30 WBC 6.8 RBC 3.09 L Hgb 10.3 L Hct 30.5 L MCV 98.6 MCH 33.4 MCHC 33.9 RDW 15.4 H Plt Count 415 H Neut % (Auto) 44.5 L Lymph % (Auto) 44.5 H [place] % (Auto) 9.1 Eos % (Auto) 1.0 L Baso % (Auto) 0.9 Neut # (Auto) 3000 Sodium 137 Potassium 3.7 Chloride 103 Carbon Dioxide 25 BUN 5 L Creatinine 0.50 L Estimated GFR > 60.0 BUN/Creatinine Ratio 10.0 Glucose 105 H Calcium 8.3 L Total Bilirubin 0.3 AST 24 ALT 28 Alkaline Phosphatase 71 Total Protein 6.3 Albumin 3.5 Globulin 2.8 Albumin/Globulin Ratio 1.3 Discharge Plan Discharge Plan Discharge Problem: Alcohol withdrawal syndrome Discharge comment: Arnaldo is the patient's boyfriend and is clearly a reliable individual who would be the financial agent of the patient's Librium in outpatient setting to administer cautiously with the provision that she does not drink alcohol while being provided Librium. Discharge Med Rec/Prescriptions Prescriptions: New metoprolol tartrate 25 mg Tablet 25 mg PO BID Qty: 60 RF: 0 naltrexone 50 mg tablet 50 mg PO DAILY Qty: 30 RF: 2 captopril 12.5 mg Tablet 50 mg PO BID Qty: 60 RF: 0 citalopram [Celexa] 20 mg tablet 20 mg PO DAILY Qty: 30 RF: 6 Continue gabapentin 300 mg PO PRN PRN (Reason: Pain (Scale Score 1-3)) RF: 0 buspirone 30 mg Tablet 30 mg PO BID RF: 0 Discontinued venlafaxine 75 mg Tablet Extended Release 24hr 225 mg PO DAILY RF: 0 Follow up/Referrals: Victor Manuel Fisher MD [Primary Care Provider] - Discharge Orders: Discharge (Order); Ordered 05/30/18 Ordered By: Valeria Grayson Provider Discharge Instructions Diet: Diet as Tolerated Activity: as tolerated Discharge Data Primary Care Provider: Victor Manuel Fisher Attending Provider: Alissa Toure Admit Date/Time: 05/22/18 21:34 Quality VTE Deep Vein Thrombosis/Pulmonary Embolism Present on Admission: No
[2018-05-30] MEDS: CITALOPRAM 20 MG TABLET PO (09:31)
[2018-05-30] MEDS: NICOTINE 14 PATCH 14 MG TOP (09:31)
[2018-05-30] MEDS: FOLIC ACID 1 MG TABLET 2 MG PO (09:31)
[2018-05-30] MEDS: THIAMINE 100 MG TABLET PO (09:32)
[2018-05-30] MEDS: METOPROLOL 25 MG TABLET PO (09:33)
[2018-05-30] MEDS: MULTIVITAMIN 1 TABLET 1 TAB PO (09:33)
--- NOTE | 2018-05-30 10:54 | PC.NURSE ---
PT PREPARED FOR DISCHARGE LATER THIS DATE- IV ACCESS REMOVED AND PT AMBULATING ABOUT UNASSISTED
--- NOTE | 2018-05-30 12:47 | CM.DPC ---
DCP Cont: DC order in place today for pt's DC home. Contacted Haley Horowitz in admissions re: pt's insurance and she said she hoped pt had Medicaid in place by next Sunday, 06.04.18. Met w/pt, reviewed DCP. Pt was up and dressed, she said her SO Arnaldo was going to pick her up. Updated pt on insurance process and encouraged her to 1. Call Haley Rowland in patient access for update on Medicaid 2. Follow up with [facility] on /Sunday for substance abuse/addiction counseling and support. Pt grateful to staff and she wants to remain sober w/ support from her SO Arnaldo, who does not drink. No further needs indicated. HARVEY Ibarra
== END 2018-05-30 15:13 | disposition home or self-care (01) | DRG 897 ==
LOC: ED 18:53 → ICU 05-23 01:53
PROVIDERS: Internal Medicine; Nurse Practitioner Gerontology; Admitting Provider Internal Medicine; Emergency Provider Emergency Medicine; PCP Family Medicine; Visit Provider Internal Medicine
DX: F10.232 Alcohol dependence with withdrawal with perceptual disturbance (principal); N39.0 Urinary tract infection, site not specified; E87.2 Acidosis; R11.2 Nausea with vomiting, unspecified; R19.7 Diarrhea, unspecified; B96.20 Unspecified Escherichia coli [E. coli] as the cause of diseases classified elsewhere; F41.9 Anxiety disorder, unspecified; F32.9 Major depressive disorder, single episode, unspecified; F17.210 Nicotine dependence, cigarettes, uncomplicated; F12.90 Cannabis use, unspecified, uncomplicated; T42.4X5A Adverse effect of benzodiazepines, initial encounter; I10 Essential (primary) hypertension; D64.9 Anemia, unspecified
CPT/HCPCS: 36415; 80048; 80053; 80076; 80305; 80320; 81003; 81015; 81025; 82075; 82962; 83690; 83735; 85025; 87077; 87086; 87186; 87797; 93005; 96361; 96365; 96375; 96376; 97162; 99284; J0610; J2060; J2560; J3475; J3480